=== PATIENT | female | born 1940 | race Caucasian/White ===

== ENCOUNTER 2017-06-17 17:05 | Inpatient (IN) | payer OTHER, MEDICARE ==
[2017-06-17] MEDS ORDERED: ALBUTEROL SO4 2.5/IPRATROPIUM 0.5 INH SOL 3 ML VIAL.NEB. NEB ONE ×3 (17:15→18:35)
[2017-06-17] MEDS ORDERED: IPRATROPIUM BR 0.02% 0.5 MG/2.5 ML VIAL.NEB. NEB ONE (17:15)
--- NOTE | 2017-06-17 17:17 | PDOC ---
History of Present Illness - General Chief Complaint: Shortness of Breath Stated Complaint: Shortness of Breath History Source: Patient Exam Limitations: No Limitations - History of Present Illness Initial Comments: 06/17/17 17:57 HPI: This 76-year-old female presents to the emergency room via EMS with complaints of shortness of breath. She states that she's been having a cold symptoms for quite some time. She does have some COPD and is a positive daily smoker. She does use an albuterol inhaler and she's been using it more frequently lately. She did not go to her primary physician as he has had no appointments but decided to come here because of her shortness of breath. Her oxygen saturation on on arrival was 88 on 2 L nasal cannula and she was bumped up to 4 L. She is able to complete sentences without having to stop for catching her breath however you can see that she is having some mild distress. Her color is pink. If she is having with a positive cough and states she does not have any production. She denies any fever, chills, runny nose, sore throat Chief Compliant: COPD exacerbation PMH: COPD, CAD, pnp-ehjwann-nqyjhzoxo diabetes FH: Pt has not recently traveled outside the country in the last 30 days. Pt has not been in contact with people who have traveled out of the country, in contact with people who have been ill with fever, n, v, d. SH: smoking use: Current every day illicit drug use: NONE alcohol use: NONE employment/educational status: sexual history: PSH: Right hip replacement Home med use noted on MAY Allergies: Quinolones and colchicine Immunizations: PCP: Dr. Dyson [employer] REPRESENTATIVE: LMP: G P : Past History - Past Medical History Allergies/Adverse Reactions: Allergies Allergy/AdvReac Type Severity Reaction Status Date / Time Quinolones Allergy Severe Verified 06/17/17 17:18 colchicine AdvReac Verified 06/17/17 17:18 Home Medications: Ambulatory Orders Albuterol Sulfate [Proair Hfa] 8.5 gm IH PRN 06/17/17 Allopurinol [Zyloprim -] 100 mg PO BID 06/17/17 Aspirin [ASA -] 81 mg PO DAILY 06/17/17 Cholecalciferol (Vitamin D3) [Vitamin D] 2,000 unit PO DAILY 06/17/17 Furosemide 20 mg PO Q2D 06/17/17 Levothyroxine [Synthroid -] 50 mcg PO DAILY 06/17/17 Lisinopril [Prinivil -] 40 mg PO DAILY 06/17/17 Metformin HCl 500 mg PO BID 06/17/17 Simvastatin 20 mg PO DAILY 06/17/17 Review of Systems - Review of Systems Able to Perform ROS?: Yes Comments:: 06/17/17 18:08 General statement: Shortness of breath Hematology: neg history of bleeding/blood thinners Skin: Neg for lesions, rash, bruising. HEENT: Neg symptoms and I sore throat Respiratory: + SOB without difficulty in breathing as it of cough Cardiac: Neg chest pain GI: Neg pain, n/v : Neg problems on voiding MS: Neg for joint pain/stiffness, no edema Neuro: Neg for LOC, weakness, Endocrine: Neg for excess thirst/hunger, cold/heat intolerance, excess sweating Allergies: + for allergies *Physical Exam - Physical Exam Comments: 06/17/17 18:09 General Appearance: This 76-year-old female with some mild respiratory distress V/S: hemodynamically stable, afebrile such and saturation 88 on room air and increased to 94 on 4 L Skin: WNL of pt's skin color, no signs of pallor, mottling, cyanosis Head:symmetrical Eyes: EOM's intact, PERRLA Ears: denies pain Nose: patent Throat: lips, teeth, gums, tongue, buccal mucos pink and moist Lungs: Chest symmetry equal. Cap refill >3 seconds. Lung sounds rhonchi and wheezing Cardiac: PMI at R 4MCL space, pos S1 and S2, regular rate. Abdomen: Soft, round, nontender : Not observed Muscularskeletal: no edema +PMS Neuro: AAOx3, cognitively intact, speech clear and appropriate. Medical Decision Making - Medical Decision Making 06/17/17 18:10 Condition initially seen and examined. She is showing some signs of mild COPD exacerbation. She's never been hospitalized for this before. She is a positive smoker and on albuterol however she stating that she's been having a cough with some shortness of breath. It is nonproductive. She's been using albuterol without any good results. She is now here for further evaluation. She is D satting at 90% on 2 L and was given some nasal cannula 4 L bring it up to 94%. Patient is getting in the emergency room some Solu-Medrol, Pepcid, magnesium, basic IV fluids Oxygen 4 L, DuoNeb's when necessary, Chest x-ray I am signing this patient out to my colleague: Sharri Espino DIRECTOR [employer] In brief, this patient is being seen in the ED for a chief complaint of: COPD exacerbation I have completed the initial assessment interview note and have ordered: Chest x -ray, DuoNeb, signed Medrol, Pepcid, magnesium, and IV fluids maintenance as well as 4 L nasal cannula Patient's PCP is Dr. Kiel bentley at [facility]. He admits to hospitalist. Plan for disposition is as follows: After reviewing chest x-ray and seeing how she does on treatment she will probably be admitted for COPD exacerbation. *DC/Admit/Observation/Transfer Diagnosis at time of Disposition: COPD (chronic obstructive pulmonary disease) - Referrals Referrals: Leonel Mccloud MD [Primary Care Provider] - - Patient Instructions - Post Discharge Activity
[2017-06-17] MEDS ORDERED: MAGNESIUM SULF 50% (8.12 MEQ/2 ML-1 GM VIAL) IVPB ONE (17:54)
[2017-06-17] MEDS ORDERED: methylPREDNISolone NA SUCC 125 MG/2 ML VIAL IVPB ONE (17:54)
[2017-06-17] MEDS ORDERED: FAMOTIDINE 20 MG/50 ML IVPB 20 MG/50 ML MG IVPB ONE ×2 (18:00→18:35)
[2017-06-17] MEDS ORDERED: methylPREDNISolone NA SUCC 125 MG/2 ML VIAL ONE (18:35)
[2017-06-17] MEDS ORDERED: MAGNESIUM SULF 50% (8.12 MEQ/2 ML-1 GM VIAL) ONE (18:35)
[2017-06-17 18:43] LABS: BASO % 0.8 % (0-2.0); EOS % 0.5 % (0-4.5); HEMATOCRIT 42.4 % (32.4-45.2); HEMOGLOBIN 14.2 GM/dL (10.7-15.3); LYMPH % 20.8 % (8-40); MCH 30.8 pg (25.7-33.7); MCHC 33.5 g/dl (32.0-36.0); MEAN CELL VOLUME 91.8 fl (80-96); MEAN PLT VOLUME 7.4 fl (7.5-11.1); NEUT % 70.9 % (42.8-82.8); PLATELET COUNT 270 K/MM3 (134-434); RBC 4.62 M/mm3 (3.60-5.2); RDW 15.5 % (11.6-15.6); WHITE BLOOD COUNT 8.9 K/mm3 (4.0-10.0)
[2017-06-17 18:53] LABS: INR 1.02 (0.82-1.09); PROTHROMBIN TIME (PATIENT) 11.5 SEC (9.98-11.88)
[2017-06-17 19:06] LABS: ALK PHOS 104 U/L (45-117); ANION GAP 8 (8-16); BILIRUBIN,TOTAL 0.1 mg/dL (0.2-1.0); BLOOD UREA NITROGEN 18 mg/dL (7-18); CALCIUM 9.3 mg/dL (8.5-10.1); CHLORIDE 95 mmol/L (98-107); CO2 33 mmol/L (21-32); CREATININE 0.8 mg/dL (0.55-1.02); GLUCOSE,RANDOM 111 mg/dL (74-106); SGOT/AST 18 U/L (15-37); SGPT/ALT 22 U/L (12-78); SODIUM 136 mmol/L (136-145)
[2017-06-17] MEDS: SODIUM CHLORIDE 1,000 ML IV SCH (19:37)
--- NOTE | 2017-06-17 19:45 | PDOC ---
*Physical Exam - Vital Signs Last Vital Signs Temp Pulse Resp BP Pulse Ox 97.5 F L 82 20 163/83 96 06/17/17 17:18 06/17/17 18:54 06/17/17 17:18 06/17/17 17:18 06/17/17 18:54 - Physical Exam General Appearance: Yes: Appropriately Dressed Respiratory/Chest: positive: Decreased Breath Sounds, Rales, Wheezing Cardiovascular: positive: Regular Rate Gastrointestinal/Abdominal: positive: Normal Bowel Sounds, Soft Extremity: positive: Normal Inspection, Normal Range of Motion Heart Score/ECG Review - ECG Intrepretation Rhythm: Regular Rhythm Comment:: 06/17/17 20:47 NSR: 83 bpm ED Treatment Course - LABORATORY CBC & Chemistry Diagram: 06/17/17 18:11 06/17/17 18:11 - ADDITIONAL ORDERS Additional order review: Laboratory Results 06/17/17 06/17/17 18:11 18:11 PT with INR 11.50 INR 1.02 Sodium 136 Potassium 4.0 Chloride 95 L Carbon Dioxide 33 H Anion Gap 8 BUN 18 Creatinine 0.8 Creat Clearance w eGFR > 60 Random Glucose 111 H Calcium 9.3 Total Bilirubin 0.1 L D AST 18 ALT 22 Alkaline Phosphatase 104 Total Protein 7.0 Albumin 3.0 L 06/17/17 18:11 RBC 4.62 MCV 91.8 MCHC 33.5 RDW 15.5 MPV 7.4 L Neutrophils % 70.9 Lymphocytes % 20.8 Monocytes % 7.0 Eosinophils % 0.5 Basophils % 0.8 - Medications Given in the ED: ED Medications Discontinued Medications Generic Name Dose Route Start Last Admin Trade Name Mika PRN Reason Stop Dose Admin Albuterol/Ipratropium 1 amp 06/17/17 17:54 06/17/17 19:37 Duoneb - NEB 06/17/17 17:55 1 amp ONCE ONE Administration Famotidine/Sodium Chloride 20 mg in 50 mls @ 100 mls/hr 06/17/17 18:00 19:37 Pepcid 20 Mg Premixed Ivpb - IVPB 06/17/17 18:29 100 mls/hr ONCE ONE Administration Magnesium Sulfate 2 gm 06/17/17 17:54 06/17/17 19:37 Magnesium Sulfate IVPB 06/17/17 17:55 2 gm ONCE ONE Administration Methylprednisolone Sodium Succinate 125 mg 06/17/17 17:54 06/17/17 19:37 Solu-Medrol - IVPB 06/17/17 17:55 125 mg ONCE ONE Administration Medical Decision Making - Medical Decision Making 06/17/17 20:49 Patient is currently requiring 2 L NC to maintain sats > 92%. slight improvement in aeration. 06/17/17 20:55 patient to be admitted for further management of care. 06/17/17 21:26 patient signed out to Dr. Moon *DC/Admit/Observation/Transfer Diagnosis at time of Disposition: COPD (chronic obstructive pulmonary disease) Qualifiers: COPD type: COPD with acute exacerbation Qualified Code(s): J44.1 - Chronic obstructive pulmonary disease with (acute) exacerbation - Discharge Dispostion Admit: Yes - Referrals Referrals: Leonel Mccloud MD [Primary Care Provider] - - Patient Instructions - Post Discharge Activity
[2017-06-17 20:15] LABS: N-TERMINAL BNP 648.58 pg/ml (5-450)
[2017-06-17] MEDS ORDERED: FUROSEMIDE 40 MG/4 ML INJECTABLE VIAL IVPUSH ONE (21:03)
--- NOTE | 2017-06-17 21:09 | PN ---
Teaching Attending Note Name of Resident: Juan Fernández ATTENDING PHYSICIAN STATEMENT I saw and evaluated the patient. Chart, data, imaging reviewed. I reviewed the resident's note and discussed the case with the resident. I agree with the resident's findings and plan as documented. SUBJECTIVE: 76 year old female with a history of extensive smoking, COPD, CAD, DM, hypothyroid, and gout c/o shortness of breath for the past 5 days. She had a cold prior to her shortness of breath. There is a chronic cough at baseline w/ minimal sputum production. SHe is an active smoker. Decreased exercise capacity , can only walk short distances. She has never had PFTs done nor does she take maintenance inhalers for COPD. Patient hypoxemic and with wheezing in ER which improved after steroids and bronchodilators. OBJECTIVE: Last Vital Signs Temp Pulse Resp BP Pulse Ox 97.5 F L 82 22 150/82 91 L 06/17/17 17:18 06/17/17 22:46 06/17/17 21:35 06/17/17 21:35 06/17/17 22:46 general - nad, aaox3 , obese, speaking in full sentences. heent - at, nc, moist oral mucosa neck -supple, no JVD noted cv -s1+S2+ rrr chest- scant wheezing, soft bibasilar crackles abdomen- soft, BS+, nt ext- warm, mild pedal edema, no cyanosis Abnormal Lab Results 06/17/17 06/17/17 06/17/17 18:11 18:11 19:45 MPV 7.4 L Chloride 95 L Carbon Dioxide 33 H Random Glucose 111 H Total Bilirubin 0.1 L D B-Natriuretic Peptide 648.58 H Albumin 3.0 L CXR - reviewed by me, no obvious consolidations or infiltrates seen, sharp costophrenic angles EKG -sinus rhythm, P pulmonale ASSESSMENT AND PLAN: #76yo woman active smoker with COPD exacerbation and hypoxemic resp failure with improvement in o2 after nasal cannula supplemental oxygen. Should r/o CHF. Very low suspiscion of PE as there is no tachycardia and patient is ambulatory. May be CHF component as there is mildly elevated BNP and prior diastolic dysfunction on TTE. -duonebs q4hrs -prednisone 40mg PO daily -azithromycin 500mg PO daily for 5 days -start spiriva while inpatient -pulmonary evaluation for PFTs -smoking cessation -supplemental oxygen via nasal cannula -TTE to r/o CHF -furosemide 20mg IV daily -continue home meds for chronic medical problems #DVT ppx with heparin sc
[2017-06-17] MEDS ORDERED: ALBUTEROL SO4 0.083% IH SOL 2.5 MG/3 ML VIAL.NEB. NEB PRN (21:34)
[2017-06-17] MEDS ORDERED: IPRATROPIUM BR 0.02% 0.5 MG/2.5 ML VIAL.NEB. NEB PRN (21:34)
[2017-06-17] MEDS ORDERED: FUROSEMIDE 40 MG/4 ML INJECTABLE VIAL ONE (21:56)
[2017-06-17] MEDS ORDERED: INSULIN SLIDING SCALE (NOVOLOG) 1 VIAL SQ SCH (22:00)
--- NOTE | 2017-06-17 22:21 | HP ---
CHIEF COMPLAINT: shortness of breath PCP: Dr. Mccloud HISTORY OF PRESENT ILLNESS: 76 year old female with a history of COPD, CAD, DM, hypothyroid, and gout presents to the hospital for shortness of breath that began on Wednesday. She states that she has been experiencing cold symptoms (cough, head congestion) for several weeks, and only started feeling the shortness of breath on Wednesday. She reports that it is exacerbated by exertion, stating that she is unable to walk very far without becoming short of breath. Patient reports a non- productive cough since the cold symptoms began. She states that she has an albuterol inhaler at home, and when she used it, she did not feel any relief and so she came to the hospital. Patient states that she has never "officially" been diagnosed with COPD or had any pulmonary function testing. She says that her diagnosis was given to her after she told a physician she was a lifelong smoker. She states was never diagnosed with CHF, but she states that both of her legs have been swollen for around 1 year (no changer fixer the past week), and she sleeps in an armchair and not a bed because of it helps her incontinence , not because it helps her breathing. Denies chest pain, fevers, chills, nausea , vomiting, diarrhea, abdominal pain. ER course was notable for: (1) O2 sat 88% on RA (2) BP 163/83 (3) Recent Travel: PAST MEDICAL HISTORY: COPD, CAD, DM, hypothyroid, and gout Social History: Smoking: every day smoker, 1 pack a day since 17 years old Alcohol: none Drugs: none Allergies Quinolones Allergy (Severe, Verified 06/17/17 17:18) colchicine Adverse Reaction (Verified 06/17/17 17:18) HOME MEDICATIONS: Home Medications Medication Instructions Recorded Albuterol Sulfate [Proair Hfa] 8.5 gm IH PRN 06/17/17 Allopurinol [Zyloprim -] 100 mg PO BID 06/17/17 Aspirin [ASA -] 81 mg PO DAILY 06/17/17 Cholecalciferol (Vitamin D3) 2,000 unit PO DAILY 06/17/17 [Vitamin D] Furosemide 20 mg PO Q2D 06/17/17 Levothyroxine [Synthroid -] 50 mcg PO DAILY 06/17/17 Lisinopril [Prinivil -] 40 mg PO DAILY 06/17/17 Metformin HCl 500 mg PO BID 06/17/17 Simvastatin 20 mg PO DAILY 06/17/17 REVIEW OF SYSTEMS CONSTITUTIONAL: Absent: fever, chills, diaphoresis, generalized weakness, malaise, loss of appetite, weight change HEENT: Absent: rhinorrhea, nasal congestion, throat pain, throat swelling, difficulty swallowing, mouth swelling, ear pain, eye pain, visual changes CARDIOVASCULAR: Absent: chest pain, syncope, palpitations, irregular heart rate, lightheadedness , peripheral edema RESPIRATORY: cough, shortness of breath, dyspnea with exertion, wheezing Absent: orthopnea, stridor, hemoptysis GASTROINTESTINAL: Absent: abdominal pain, abdominal distension, nausea, vomiting, diarrhea, constipation, melena, hematochezia GENITOURINARY: Absent: dysuria, frequency, urgency, hesitancy, hematuria, flank pain, genital pain MUSCULOSKELETAL: Absent: myalgia, arthralgia, joint swelling, back pain, neck pain SKIN: Absent: rash, itching, pallor HEMATOLOGIC/IMMUNOLOGIC: Absent: easy bleeding, easy bruising, lymphadenopathy, frequent infections ENDOCRINE: Absent: unexplained weight gain, unexplained weight loss, heat intolerance, cold intolerance NEUROLOGIC: Absent: headache, focal weakness or paresthesias, dizziness, unsteady gait, seizure, mental status changes, bladder or bowel incontinence PSYCHIATRIC: Absent: anxiety, depression, suicidal or homicidal ideation, hallucinations. PHYSICAL EXAMINATION Vital Signs - 24 hr 06/17/17 06/17/17 06/17/17 17:18 17:55 18:54 Temperature 97.5 F L Pulse Rate 84 85 82 Respiratory 20 Rate Blood Pressure 163/83 O2 Sat by Pulse 94 L 94 L 96 Oximetry (%) GENERAL: A&Ox3, no acute distress EYES: PERRLA, EOMI ENT: Moist mucus membranes NECK: No JVD LUNGS: diffuse expiratory wheezes, mild bibasilar crackles at lung bases HEART: RRR, no murmurs ABDOMEN: Obese, nontender, bowel sounds are present on auscultation MUSCULOSKELETAL: No CVA Tenderness EXTREMITIES: 2+ pulses, 1+ pitting edema bilaterally NEUROLOGICAL: Cranial nerves II-XII intact. Laboratory Results - last 24 hr 06/17/17 06/17/17 06/17/17 18:11 18:11 18:11 WBC 8.9 RBC 4.62 Hgb 14.2 Hct 42.4 MCV 91.8 MCH 30.8 MCHC 33.5 RDW 15.5 Plt Count 270 MPV 7.4 L Neutrophils % 70.9 Lymphocytes % 20.8 Monocytes % 7.0 Eosinophils % 0.5 Basophils % 0.8 PT with INR 11.50 INR 1.02 Sodium 136 Potassium 4.0 Chloride 95 L Carbon Dioxide 33 H Anion Gap 8 BUN 18 Creatinine 0.8 Creat Clearance w eGFR > 60 Random Glucose 111 H Calcium 9.3 Total Bilirubin 0.1 L D AST 18 ALT 22 Alkaline Phosphatase 104 Creatine Kinase Troponin I B-Natriuretic Peptide Total Protein 7.0 Albumin 3.0 L 06/17/17 19:45 WBC RBC Hgb Hct MCV MCH MCHC RDW Plt Count MPV Neutrophils % Lymphocytes % Monocytes % Eosinophils % Basophils % PT with INR INR Sodium Potassium Chloride Carbon Dioxide Anion Gap BUN Creatinine Creat Clearance w eGFR Random Glucose Calcium Total Bilirubin AST ALT Alkaline Phosphatase Creatine Kinase 57 Troponin I 0.02 B-Natriuretic Peptide 648.58 H Total Protein Albumin ASSESSMENT/PLAN: 76 year old female with a history of COPD, CAD, DM, hypothyroid, and gout presents with shortness of breath suggestive of COPD exacerbation #Acute hypoxic respiratory failure: likely 2/2 mild to moderate COPD exacerbation, possible mild CHF exacerbation, low clinical suspicion for PE (no tachycardia, ekg changes, alternative diagnosis more likely) -EKG NSR -albuterol inhaler Q4 -ipratropium inhaler Q4 -solumedrol given in ED -continue with prednisone 40 QD -zithromax 500 -spiriva -continue with home dose lasix 20mg Q2D -last echo was in 2014 - showed grade I diastolic dysfunction with EF 69% -repeat echocardiogram -O2 sats -daily weights, accurate I's/O's #Diabetes Mellitus -BGMs ACHS -ISS #Coronary Artery Disease -continue aspirin 81mg QD #Hypothyroidism: stable -continue levothyroxine 50mcg daily #Hypertension: patient is hypertensive at 163/83 -continue lisinopril 40 daily #Gout: stable -continue allopurinol #FEN -No standing fluids -Electrolytes within normal limits -diabetic diet #Prophylaxis -heparin 5000 subQ TID #Disposition -admit to med surg Visit type - Emergency Visit Emergency Visit: Yes ED Registration Date: 06/17/17 Care time: The patient presented to the Emergency Department on the above date and was hospitalized for further evaluation of their emergent condition. - New Patient This patient is new to me today: Yes Date on this admission: 06/17/17 - Critical Care Critical Care patient: No Hospitalist Screening - Colonoscopy Questionnaire Colonoscopy Questionnaire: Colonoscopy Questionnaire - Patient: 50 - 75 years old and never had a screening colonoscopy: Unknown History of colon or rectal polyps, or CA: Unknown History of IBD, Crohn's disease or UC: Unknown History of abdominal radiation therapy as a child: Unknown - Relative: 1 with colon or rectal CA, or polyps at age 60 or younger: Unknown Colon or rectal CA diagnosed at age 45 or younger: Unknown Multiple relatives with colon or rectal CA: Unknown - Outcome: Screening Result: Negative Screen
[2017-06-17] MEDS: ALLOPURINOL 100 MG TABLET (FP) PO SCH (22:42)
[2017-06-17] MEDS: ATORVASTATIN CA 20 MG TABLET (FP) PO ONE ×2 (22:43→23:13)
[2017-06-17] MEDS: HEPARIN NA (PORCINE) 5,000 UNITS/ML 1ML VIAL SQ SCH (23:13)
[2017-06-17] MEDS ORDERED: HEPARIN NA (PORCINE) 5,000 UNITS/ML 1ML VIAL ONE (23:14)
[2017-06-18 05:16] VITALS: BMI 37.5
[2017-06-18] MEDS: INSULIN SLIDING SCALE (NOVOLOG) 1 VIAL SQ SCH ×4 (06:59→21:41)
[2017-06-18] MEDS: HEPARIN NA (PORCINE) 5,000 UNITS/ML 1ML VIAL SQ SCH ×3 (07:03→21:40)
[2017-06-18] MEDS: LEVOTHYROXINE NA 50 MCG TABLET (FP) PO SCH (07:06)
[2017-06-18 08:38] LABS: HEMATOCRIT 40.1 % (32.4-45.2); HEMOGLOBIN 13.3 GM/dL (10.7-15.3); MCH 30.3 pg (25.7-33.7); MCHC 33.2 g/dl (32.0-36.0); MEAN CELL VOLUME 91.5 fl (80-96); MEAN PLT VOLUME 7.6 fl (7.5-11.1); PLATELET COUNT 246 K/MM3 (134-434); RBC 4.38 M/mm3 (3.60-5.2); WHITE BLOOD COUNT 6.4 K/mm3 (4.0-10.0)
[2017-06-18 08:54] LABS: ANION GAP 11 (8-16); BLOOD UREA NITROGEN 22 mg/dL (7-18); CHLORIDE 95 mmol/L (98-107); CO2 31 mmol/L (21-32); GLUCOSE,RANDOM 204 mg/dL (74-106); MAGNESIUM 1.8 mg/dL (1.8-2.4); POTASSIUM 4.2 mmol/L (3.5-5.1); SODIUM 137 mmol/L (136-145)
[2017-06-18 08:56] LABS: CREATININE 0.9 mg/dL (0.55-1.02); PHOSPHOROUS 3.4 mg/dL (2.5-4.9)
[2017-06-18] MEDS ORDERED: predniSONE 20 MG TABLET (UD) PO SCH (10:00)
--- NOTE | 2017-06-18 10:09 | EKG ---
Test Reason : Blood Pressure : / mmHG Vent. Rate : 083 BPM Atrial Rate : 083 BPM P-R Int : 144 ms QRS Dur : 070 ms QT Int : 362 ms P-R-T Axes : 083 029 061 degrees QTc Int : 425 ms NORMAL SINUS RHYTHM LOW VOLTAGE QRS CANNOT RULE OUT ANTEROSEPTAL INFARCT (CITED ON OR BEFORE 09-APR-2008) ABNORMAL ECG WHEN COMPARED WITH ECG OF 09-APR-2008 12:49, NO SIGNIFICANT CHANGE WAS FOUND Confirmed by AKIL NELSON MD ([id number]) on 06/18/2017 10:09:04 AM Referred By: Confirmed By:AKIL NELSON MD
[2017-06-18] MEDS: methylPREDNISolone NA SUCC 40 MG/1 ML VIAL IVPUSH SCH ×2 (10:48→21:40)
[2017-06-18] MEDS: LISINOPRIL 20 MG TABLET (FP) PO SCH (10:48)
[2017-06-18] MEDS: ALLOPURINOL 100 MG TABLET (FP) PO SCH ×2 (10:48→21:40)
[2017-06-18] MEDS: AZITHROMYCIN 250 MG TABLET PO SCH (10:48)
[2017-06-18] MEDS: ASPIRIN 81 MG CHEWABLE TABLETS PO SCH (10:48)
[2017-06-18] MEDS: CHOLECALCIFEROL (VITAMIN D3) 1,000 UNIT TABLET (FP) PO SCH (10:48)
[2017-06-18] MEDS: ALBUTEROL SO4 2.5/IPRATROPIUM 0.5 INH SOL 3 ML VIAL.NEB. NEB SCH ×3 (12:14→21:06)
--- NOTE | 2017-06-18 14:13 | PN ---
Physical Exam: SUBJECTIVE: Patient seen and examined No acute events overnight. Patient feels better this morning. Continues to be dyspnic on exertion OBJECTIVE: Vital Signs Period Temp Pulse Resp BP Sys/Hua Pulse Ox Last 24 Hr 97.5 F-97.7 F 82-85 20-22 97-163/56-83 91-96 GENERAL: A&Ox3, no acute distress EYES: PERRLA, EOMI ENT: Moist mucus membranes NECK: No JVD LUNGS: diminshed breath sounds throughout, no crackles/wheezes heard HEART: RRR, no murmurs ABDOMEN: Obese, nontender, bowel sounds are present on auscultation MUSCULOSKELETAL: No CVA Tenderness EXTREMITIES: 2+ pulses, 2+ pitting edema bilaterally NEUROLOGICAL: Cranial nerves II-XII intact. Laboratory Results - last 24 hr 06/17/17 06/17/17 06/17/17 18:11 18:11 18:11 WBC 8.9 RBC 4.62 Hgb 14.2 Hct 42.4 MCV 91.8 MCH 30.8 MCHC 33.5 RDW 15.5 Plt Count 270 MPV 7.4 L Neutrophils % 70.9 Lymphocytes % 20.8 Monocytes % 7.0 Eosinophils % 0.5 Basophils % 0.8 PT with INR 11.50 INR 1.02 Sodium 136 Potassium 4.0 Chloride 95 L Carbon Dioxide 33 H Anion Gap 8 BUN 18 Creatinine 0.8 Creat Clearance w eGFR > 60 POC Glucometer Random Glucose 111 H Calcium 9.3 Phosphorus Magnesium Total Bilirubin 0.1 L D AST 18 ALT 22 Alkaline Phosphatase 104 Creatine Kinase Troponin I B-Natriuretic Peptide Total Protein 7.0 Albumin 3.0 L 06/17/17 06/18/17 06/18/17 19:45 06:54 07:00 WBC 6.4 RBC 4.38 Hgb 13.3 Hct 40.1 MCV 91.5 MCH 30.3 MCHC 33.2 RDW 16.0 H Plt Count 246 MPV 7.6 Neutrophils % Lymphocytes % Monocytes % Eosinophils % Basophils % PT with INR INR Sodium Potassium Chloride Carbon Dioxide Anion Gap BUN Creatinine Creat Clearance w eGFR POC Glucometer 225 Random Glucose Calcium Phosphorus Magnesium Total Bilirubin AST ALT Alkaline Phosphatase Creatine Kinase 57 Troponin I 0.02 B-Natriuretic Peptide 648.58 H Total Protein Albumin 06/18/17 06/18/17 07:00 11:37 WBC RBC Hgb Hct MCV MCH MCHC RDW Plt Count MPV Neutrophils % Lymphocytes % Monocytes % Eosinophils % Basophils % PT with INR INR Sodium 137 Potassium 4.2 Chloride 95 L Carbon Dioxide 31 Anion Gap 11 BUN 22 H Creatinine 0.9 Creat Clearance w eGFR POC Glucometer 159 Random Glucose 204 H Calcium 9.0 Phosphorus 3.4 Magnesium 1.8 Total Bilirubin AST ALT Alkaline Phosphatase Creatine Kinase Troponin I B-Natriuretic Peptide Total Protein Albumin Active Medications Generic Name Dose Route Start Last Admin Trade Name Freq PRN Reason Stop Dose Admin Albuterol Sulfate 1 amp 06/17/17 21:34 Ventolin 0.083% Nebulizer Soln - NEB Q4H PRN SHORT OF BREATH/WHEEZING Albuterol/Ipratropium 1 amp 06/18/17 12:00 06/18/17 12:14 Duoneb - NEB 1 amp RQID REBECCA Administration Allopurinol 100 mg 06/17/17 22:00 06/18/17 10:48 Zyloprim - PO 100 mg BID REBECCA Administration Aspirin 81 mg 06/18/17 10:00 06/18/17 10:48 Asa - PO 81 mg DAILY REBECCA Administration Azithromycin 500 mg 06/18/17 10:00 06/18/17 10:48 Zithromax - PO 500 mg DAILY REBECCA Administration Cholecalciferol 2,000 unit 06/18/17 10:00 06/18/17 10:48 Vitamin D3 - PO 2,000 unit DAILY REBECCA Administration Furosemide 20 mg 06/19/17 10:00 Lasix - PO Q2D REBECCA Guaifenesin 10 ml 06/18/17 13:34 Robitussin - PO Q4H PRN COUGH Heparin Sodium (Porcine) 5,000 unit 06/17/17 22:15 06/18/17 07:03 Heparin - SQ 5,000 unit TID REBECCA Administration Sodium Chloride 1,000 mls @ 100 mls/hr 06/17/17 18:00 06/17/17 19:37 Normal Saline - IV 100 mls/hr ASDIR REBECCA Administration Insulin Aspart 1 vial 06/17/17 22:13 06/18/17 11:38 Novolog Vial Sliding Scale - SQ 2 unit ACHS REBECCA Administration Protocol Levothyroxine Sodium 50 mcg 06/18/17 07:00 06/18/17 07:06 Synthroid - PO 50 mcg DAILY@0700 REBECCA Administration Lisinopril 40 mg 06/18/17 10:00 06/18/17 10:48 Prinivil PO 40 mg DAILY REBECCA Administration Methylprednisolone Sodium Succinate 40 mg 06/18/17 10:00 06/18/17 10:48 Solu-Medrol - IVPUSH 40 mg BID REBECCA Administration ASSESSMENT/PLAN: 76 year old female with a history of COPD, CAD, DM, hypothyroid, and gout presents with shortness of breath suggestive of COPD exacerbation #Acute hypoxic respiratory failure: likely 2/2 mild to moderate COPD exacerbation -Duonebs qidr rebecca -albuterol inhaler Q4 prn -Solumederol 40 bid -zithromax 500 -spiriva -continue with home dose lasix 20mg Q2D -repeat echocardiogram pending -O2 sats -daily weights, accurate I's/O's #Diabetes Mellitus -BGMs ACHS -ISS #Coronary Artery Disease -continue aspirin 81mg QD #Hypothyroidism: stable -continue levothyroxine 50mcg daily #Hypertension: patient is hypertensive at 163/83 -continue lisinopril 40 daily #Gout: stable -continue allopurinol #FEN -NS @ 100 cc/hr -Electrolytes within normal limits -diabetic diet #Prophylaxis -heparin 5000 subQ TID Visit type - Emergency Visit Emergency Visit: Yes ED Registration Date: 06/17/17 Care time: The patient presented to the Emergency Department on the above date and was hospitalized for further evaluation of their emergent condition. - New Patient This patient is new to me today: Yes Date on this admission: 06/18/17 - Critical Care Critical Care patient: No
--- NOTE | 2017-06-18 17:08 | PN ---
Teaching Attending Note Name of Resident: Domenico Magaña ATTENDING PHYSICIAN STATEMENT I saw and evaluated the patient. I reviewed the resident's note and discussed the case with the resident. I agree with the resident's findings and plan as documented. SUBJECTIVE: Patient feels SOB. OBJECTIVE: Vital Signs Period Temp Pulse Resp BP Sys/Hua Pulse Ox Last 24 Hr 97.5 F-97.9 F 82-94 20-22 97-163/56-83 91-96 HEART: S1S2, RRR LUNGS: Poor air entry ABDOMEN: Obese, soft, non-tender, non-distended, normal BS EXTREMITIES: 1+ edema Laboratory Results - last 24 hr 06/17/17 06/17/17 06/17/17 18:11 18:11 18:11 WBC 8.9 RBC 4.62 Hgb 14.2 Hct 42.4 MCV 91.8 MCH 30.8 MCHC 33.5 RDW 15.5 Plt Count 270 MPV 7.4 L Neutrophils % 70.9 Lymphocytes % 20.8 Monocytes % 7.0 Eosinophils % 0.5 Basophils % 0.8 PT with INR 11.50 INR 1.02 Sodium 136 Potassium 4.0 Chloride 95 L Carbon Dioxide 33 H Anion Gap 8 BUN 18 Creatinine 0.8 Creat Clearance w eGFR > 60 POC Glucometer Random Glucose 111 H Calcium 9.3 Phosphorus Magnesium Total Bilirubin 0.1 L D AST 18 ALT 22 Alkaline Phosphatase 104 Creatine Kinase Troponin I B-Natriuretic Peptide Total Protein 7.0 Albumin 3.0 L 06/17/17 06/18/17 06/18/17 19:45 06:54 07:00 WBC 6.4 RBC 4.38 Hgb 13.3 Hct 40.1 MCV 91.5 MCH 30.3 MCHC 33.2 RDW 16.0 H Plt Count 246 MPV 7.6 Neutrophils % Lymphocytes % Monocytes % Eosinophils % Basophils % PT with INR INR Sodium Potassium Chloride Carbon Dioxide Anion Gap BUN Creatinine Creat Clearance w eGFR POC Glucometer 225 Random Glucose Calcium Phosphorus Magnesium Total Bilirubin AST ALT Alkaline Phosphatase Creatine Kinase 57 Troponin I 0.02 B-Natriuretic Peptide 648.58 H Total Protein Albumin 06/18/17 06/18/17 07:00 11:37 WBC RBC Hgb Hct MCV MCH MCHC RDW Plt Count MPV Neutrophils % Lymphocytes % Monocytes % Eosinophils % Basophils % PT with INR INR Sodium 137 Potassium 4.2 Chloride 95 L Carbon Dioxide 31 Anion Gap 11 BUN 22 H Creatinine 0.9 Creat Clearance w eGFR POC Glucometer 159 Random Glucose 204 H Calcium 9.0 Phosphorus 3.4 Magnesium 1.8 Total Bilirubin AST ALT Alkaline Phosphatase Creatine Kinase Troponin I B-Natriuretic Peptide Total Protein Albumin Current Medications Generic Name Dose Route Start Last Admin Trade Name Freq PRN Reason Stop Dose Admin Albuterol Sulfate 1 amp 06/17/17 21:34 Ventolin 0.083% Nebulizer Soln - NEB Q4H PRN SHORT OF BREATH/WHEEZING Albuterol/Ipratropium 1 amp 06/18/17 12:00 06/18/17 16:06 Duoneb - NEB 1 amp RQID [facility] Administration Allopurinol 100 mg 06/17/17 22:00 06/18/17 10:48 Zyloprim - PO 100 mg BID [facility] Administration Aspirin 81 mg 06/18/17 10:00 06/18/17 10:48 Asa - PO 81 mg DAILY [facility] Administration Azithromycin 500 mg 06/18/17 10:00 06/18/17 10:48 Zithromax - PO 500 mg DAILY [facility] Administration Cholecalciferol 2,000 unit 06/18/17 10:00 06/18/17 10:48 Vitamin D3 - PO 2,000 unit DAILY [facility] Administration Furosemide 20 mg 06/19/17 10:00 Lasix - PO Q2D [facility] Guaifenesin 10 ml 06/18/17 13:34 Robitussin - PO Q4H PRN COUGH Heparin Sodium (Porcine) 5,000 unit 06/17/17 22:15 06/18/17 14:47 Heparin - SQ 5,000 unit TID [facility] Administration Sodium Chloride 1,000 mls @ 100 mls/hr 06/17/17 18:00 06/17/17 19:37 Normal Saline - IV 100 mls/hr ASDIR [facility] Administration Insulin Aspart 1 vial 06/17/17 22:13 06/18/17 16:49 Novolog Vial Sliding Scale - SQ 4 unit ACHS [facility] Administration Protocol Levothyroxine Sodium 50 mcg 06/18/17 07:00 06/18/17 07:06 Synthroid - PO 50 mcg DAILY@0700 [facility] Administration Lisinopril 40 mg 06/18/17 10:00 06/18/17 10:48 Prinivil PO 40 mg DAILY [facility] Administration Methylprednisolone Sodium Succinate 40 mg 06/18/17 10:00 06/18/17 10:48 Solu-Medrol - IVPUSH 40 mg BID [facility] Administration ASSESSMENT AND PLAN: This is a 76 year old woman with a history of COPD, CAD, type 2 DM, hypothyroidism, obesity, gout who presented to the ED with shortness of breath. exacerbation 1. Acute hypoxic respiratory failure secondary to acute exacerbation of COPD - Continue SoluMedrol, DuoNeb, albuterol as needed, Zithromax, Robitussin as needed - Echo shows normal LVEF, E/A reversal - Clinically does not appear to be acute heart failure 2. Type 2 DM - Metformin held - Continue Novolog sliding scale 3. CAD - Continue aspirin, Zocor 4. Hypothyroidism - Continue Synthroid 5. Hypertension - Continue lisinopril, Lasix 6. History of gout - Continue Allopurinol 7. Obesity with BMI 37.9
[2017-06-18] MEDS: guaiFENesin 200 MG/10 ML 10 ML UNIT-DOSE CUPS PO PRN ×2 (18:48→23:35)
[2017-06-19] MEDS: HEPARIN NA (PORCINE) 5,000 UNITS/ML 1ML VIAL SQ SCH ×3 (06:02→22:04)
[2017-06-19] MEDS: INSULIN SLIDING SCALE (NOVOLOG) 1 VIAL SQ SCH ×4 (06:03→22:04)
[2017-06-19] MEDS: LEVOTHYROXINE NA 50 MCG TABLET (FP) PO SCH (06:03)
[2017-06-19] MEDS ORDERED: PT OWN MED DRAWER 7, Y5N ONE ×2 (06:47→21:14)
[2017-06-19] MEDS ORDERED: INSULIN (NOVOLOG) ASPART 100 UNITS/ML 10ML VIAL ONE (06:47)
[2017-06-19] MEDS: ALBUTEROL SO4 2.5/IPRATROPIUM 0.5 INH SOL 3 ML VIAL.NEB. NEB SCH ×4 (07:45→20:13)
--- NOTE | 2017-06-19 07:50 | PN ---
Physical Exam: SUBJECTIVE: Patient seen and examined No acute events overnight. Patient feels better this morning. OBJECTIVE: Vital Signs Period Temp Pulse Resp BP Sys/Hua Pulse Ox Last 24 Hr 96.1 F-98.3 F 89-96 20-24 153-164/77-83 96-96 GENERAL: A&Ox3, no acute distress EYES: PERRLA, EOMI ENT: Moist mucus membranes NECK: No JVD LUNGS: Improved air entry, no crackles/wheezes heard HEART: RRR, no murmurs ABDOMEN: Obese, nontender, bowel sounds are present on auscultation MUSCULOSKELETAL: No CVA Tenderness EXTREMITIES: 2+ pulses, 2+ pitting edema bilaterally NEUROLOGICAL: Cranial nerves II-XII intact. Laboratory Results - last 24 hr 06/18/17 06/18/17 06/18/17 07:00 07:00 11:37 WBC 6.4 RBC 4.38 Hgb 13.3 Hct 40.1 MCV 91.5 MCH 30.3 MCHC 33.2 RDW 16.0 H Plt Count 246 MPV 7.6 Sodium 137 Potassium 4.2 Chloride 95 L Carbon Dioxide 31 Anion Gap 11 BUN 22 H Creatinine 0.9 POC Glucometer 159 Random Glucose 204 H Calcium 9.0 Phosphorus 3.4 Magnesium 1.8 06/18/17 06/18/17 06/19/17 16:47 21:37 05:58 WBC RBC Hgb Hct MCV MCH MCHC RDW Plt Count MPV Sodium Potassium Chloride Carbon Dioxide Anion Gap BUN Creatinine POC Glucometer 231 179 188 Random Glucose Calcium Phosphorus Magnesium Active Medications Generic Name Dose Route Start Last Admin Trade Name Freq PRN Reason Stop Dose Admin Albuterol Sulfate 1 amp 06/17/17 21:34 Ventolin 0.083% Nebulizer Soln - NEB Q4H PRN SHORT OF BREATH/WHEEZING Albuterol/Ipratropium 1 amp 06/18/17 12:00 06/18/17 21:06 Duoneb - NEB 1 amp RQID [facility] Administration Allopurinol 100 mg 06/17/17 22:00 06/18/17 21:40 Zyloprim - PO 100 mg BID [facility] Administration Aspirin 81 mg 06/18/17 10:00 06/18/17 10:48 Asa - PO 81 mg DAILY [facility] Administration Azithromycin 500 mg 06/18/17 10:00 06/18/17 10:48 Zithromax - PO 500 mg DAILY [facility] Administration Cholecalciferol 2,000 unit 06/18/17 10:00 06/18/17 10:48 Vitamin D3 - PO 2,000 unit DAILY [facility] Administration Furosemide 20 mg 06/19/17 10:00 Lasix - PO Q2D [facility] Guaifenesin 10 ml 06/18/17 13:34 06/18/17 23:35 Robitussin - PO 10 ml Q4H PRN Administration COUGH Heparin Sodium (Porcine) 5,000 unit 06/17/17 22:15 06/19/17 06:02 Heparin - SQ 5,000 unit TID [facility] Administration Insulin Aspart 1 vial 06/17/17 22:13 06/19/17 06:03 Novolog Vial Sliding Scale - SQ 2 unit ACHS [facility] Administration Protocol Levothyroxine Sodium 50 mcg 06/18/17 07:00 06/19/17 06:03 Synthroid - PO 50 mcg DAILY@0700 [facility] Administration Lisinopril 40 mg 06/18/17 10:00 06/18/17 10:48 Prinivil PO 40 mg DAILY [facility] Administration Methylprednisolone Sodium Succinate 40 mg 06/18/17 10:00 06/18/17 21:40 Solu-Medrol - IVPUSH 40 mg BID [facility] Administration ASSESSMENT/PLAN: Visit type - Emergency Visit Emergency Visit: Yes ED Registration Date: 06/17/17 Care time: The patient presented to the Emergency Department on the above date and was hospitalized for further evaluation of their emergent condition. - New Patient This patient is new to me today: No - Critical Care Critical Care patient: No
[2017-06-19 09:02] LABS: ANION GAP 5 (8-16); BLOOD UREA NITROGEN 37 mg/dL (7-18); CALCIUM 9.4 mg/dL (8.5-10.1); CHLORIDE 96 mmol/L (98-107); CO2 34 mmol/L (21-32); CREATININE 1.1 mg/dL (0.55-1.02); GLUCOSE,RANDOM 173 mg/dL (74-106); POTASSIUM 5.6 mmol/L (3.5-5.1); SODIUM 135 mmol/L (136-145)
[2017-06-19] MEDS: methylPREDNISolone NA SUCC 40 MG/1 ML VIAL IVPUSH SCH ×2 (09:10→22:04)
[2017-06-19] MEDS: ASPIRIN 81 MG CHEWABLE TABLETS PO SCH (09:10)
[2017-06-19] MEDS: LISINOPRIL 20 MG TABLET (FP) PO SCH (09:10)
[2017-06-19] MEDS: FUROSEMIDE 20 MG TABLET (FP) PO SCH (09:10)
[2017-06-19] MEDS: ALLOPURINOL 100 MG TABLET (FP) PO SCH ×2 (09:10→22:04)
[2017-06-19] MEDS: AZITHROMYCIN 250 MG TABLET PO SCH (09:10)
[2017-06-19] MEDS: CHOLECALCIFEROL (VITAMIN D3) 1,000 UNIT TABLET (FP) PO SCH (09:10)
[2017-06-19] MEDS ORDERED: SODIUM POLYSTYRENE SULFONATE 15 GM/60 ML BOTTLE PO ONE (10:12)
[2017-06-19] MEDS: SODIUM CHLORIDE 1,000 ML IV SCH (10:33)
--- NOTE | 2017-06-19 11:35 | EKG ---
Test Reason : Blood Pressure : / mmHG Vent. Rate : 080 BPM Atrial Rate : 080 BPM P-R Int : 152 ms QRS Dur : 078 ms QT Int : 356 ms P-R-T Axes : 068 004 040 degrees QTc Int : 410 ms NORMAL SINUS RHYTHM POSSIBLE LEFT ATRIAL ENLARGEMENT ANTEROSEPTAL INFARCT (CITED ON OR BEFORE 09-APR-2008) ABNORMAL ECG WHEN COMPARED WITH ECG OF 17-JUN-2017 19:13, NO SIGNIFICANT CHANGE WAS FOUND Confirmed by AKIL NELSON MD ([id number]) on 06/19/2017 11:35:10 AM Referred By: Jonas KEATING Confirmed By:AKIL NELSON MD
--- NOTE | 2017-06-19 13:55 | PN ---
Teaching Attending Note Name of Resident: Domenico Magaña ATTENDING PHYSICIAN STATEMENT I saw and evaluated the patient. I reviewed the resident's note and discussed the case with the resident. I agree with the resident's findings and plan as documented. SUBJECTIVE: Patient says she is feeling less SOB. OBJECTIVE: Vital Signs Period Temp Pulse Resp BP Sys/Hua Pulse Ox Last 24 Hr 96.1 F-98.3 F 82-96 20-24 152-164/73-83 94-96 HEART: S1S2, RRR LUNGS: Decreased BS throughout ABDOMEN: Obese, soft, non-tender, non-distended, normal BS EXTREMITIES: 1+ edema Laboratory Results - last 24 hr 06/18/17 06/18/17 06/19/17 16:47 21:37 05:58 Sodium Potassium Chloride Carbon Dioxide Anion Gap BUN Creatinine POC Glucometer 231 179 188 Random Glucose Calcium 06/19/17 06/19/17 06:30 11:42 Sodium 135 L Potassium 5.6 H Chloride 96 L Carbon Dioxide 34 H Anion Gap 5 L BUN 37 H Creatinine 1.1 H POC Glucometer 229 Random Glucose 173 H Calcium 9.4 Current Medications Generic Name Dose Route Start Last Admin Trade Name Freq PRN Reason Stop Dose Admin Albuterol Sulfate 1 amp 06/17/17 21:34 Ventolin 0.083% Nebulizer Soln - NEB Q4H PRN SHORT OF BREATH/WHEEZING Albuterol/Ipratropium 1 amp 06/18/17 12:00 06/19/17 11:27 Duoneb - NEB 1 amp RQID [facility] Administration Allopurinol 100 mg 06/17/17 22:00 06/19/17 09:10 Zyloprim - PO 100 mg BID [facility] Administration Aspirin 81 mg 06/18/17 10:00 06/19/17 09:10 Asa - PO 81 mg DAILY [facility] Administration Azithromycin 500 mg 06/18/17 10:00 06/19/17 09:10 Zithromax - PO 500 mg DAILY [facility] Administration Cholecalciferol 2,000 unit 06/18/17 10:00 06/19/17 09:10 Vitamin D3 - PO 2,000 unit DAILY [facility] Administration Furosemide 20 mg 06/19/17 10:00 06/19/17 09:10 Lasix - PO 20 mg Q2D [facility] Administration Guaifenesin 10 ml 06/18/17 13:34 06/18/17 23:35 Robitussin - PO 10 ml Q4H PRN Administration COUGH Heparin Sodium (Porcine) 5,000 unit 06/17/17 22:15 06/19/17 06:02 Heparin - SQ 5,000 unit TID [facility] Administration Insulin Aspart 1 vial 06/17/17 22:13 06/19/17 11:44 Novolog Vial Sliding Scale - SQ 4 unit ACHS [facility] Administration Protocol Levothyroxine Sodium 50 mcg 06/18/17 07:00 06/19/17 06:03 Synthroid - PO 50 mcg DAILY@0700 [facility] Administration Lisinopril 40 mg 06/18/17 10:00 06/19/17 09:10 Prinivil PO 40 mg DAILY [facility] Administration Methylprednisolone Sodium Succinate 40 mg 06/18/17 10:00 06/19/17 09:10 Solu-Medrol - IVPUSH 40 mg BID [facility] Administration ASSESSMENT AND PLAN: This is a 76 year old woman with a history of COPD, CAD, type 2 DM, hypothyroidism, obesity, gout who presented to the ED with shortness of breath. 1. Acute hypoxic respiratory failure secondary to acute exacerbation of COPD - Continue SoluMedrol, DuoNeb, albuterol as needed, Zithromax, Robitussin as needed - Echo shows normal LVEF, E/A reversal 2. Hyperkalemia - No EKG changes noted - Given Kayexalate 3. Type 2 DM - Metformin held - Continue Novolog sliding scale 4. CAD - Continue aspirin, Zocor 5. Hypothyroidism - Continue Synthroid 6. Hypertension - Continue lisinopril, Lasix 7. History of gout - Continue Allopurinol 8. Obesity with BMI 37.9
[2017-06-19] MEDS: guaiFENesin 200 MG/10 ML 10 ML UNIT-DOSE CUPS PO PRN (17:19)
[2017-06-19 18:42] LABS: ANION GAP 8 (8-16); BLOOD UREA NITROGEN 36 mg/dL (7-18); CHLORIDE 95 mmol/L (98-107); CO2 30 mmol/L (21-32); GLUCOSE,RANDOM 161 mg/dL (74-106); POTASSIUM 4.2 mmol/L (3.5-5.1); SODIUM 133 mmol/L (136-145)
[2017-06-20] MEDS: HEPARIN NA (PORCINE) 5,000 UNITS/ML 1ML VIAL SQ SCH ×3 (06:22→21:13)
[2017-06-20] MEDS: LEVOTHYROXINE NA 50 MCG TABLET (FP) PO SCH (06:23)
[2017-06-20] MEDS: INSULIN SLIDING SCALE (NOVOLOG) 1 VIAL SQ SCH ×4 (06:23→21:17)
[2017-06-20] MEDS: ALBUTEROL SO4 2.5/IPRATROPIUM 0.5 INH SOL 3 ML VIAL.NEB. NEB SCH ×4 (07:58→22:03)
[2017-06-20 09:01] LABS: ANION GAP 4 (8-16); BLOOD UREA NITROGEN 35 mg/dL (7-18); CALCIUM 8.7 mg/dL (8.5-10.1); CHLORIDE 96 mmol/L (98-107); CO2 34 mmol/L (21-32); CREATININE 0.9 mg/dL (0.55-1.02); GLUCOSE,RANDOM 179 mg/dL (74-106); POTASSIUM 4.6 mmol/L (3.5-5.1); SODIUM 134 mmol/L (136-145)
[2017-06-20] MEDS: ASPIRIN 81 MG CHEWABLE TABLETS PO SCH (10:01)
[2017-06-20] MEDS: LISINOPRIL 20 MG TABLET (FP) PO SCH (10:02)
[2017-06-20] MEDS: CHOLECALCIFEROL (VITAMIN D3) 1,000 UNIT TABLET (FP) PO SCH (10:02)
[2017-06-20] MEDS: AZITHROMYCIN 250 MG TABLET PO SCH (10:02)
[2017-06-20] MEDS: methylPREDNISolone NA SUCC 40 MG/1 ML VIAL IVPUSH SCH ×2 (10:02→21:13)
[2017-06-20] MEDS: ALLOPURINOL 100 MG TABLET (FP) PO SCH ×2 (10:02→21:13)
[2017-06-20] MEDS ORDERED: INSULIN (NOVOLOG) ASPART 100 UNITS/ML 10ML VIAL ONE (11:23)
--- NOTE | 2017-06-20 17:53 | PN ---
Physical Exam: SUBJECTIVE: Patient seen and examined. She has no complaints. OBJECTIVE: Vital Signs Period Temp Pulse Resp BP Sys/Hua Pulse Ox Last 24 Hr 98 F-98.2 F 74-86 20-20 148-155/67-77 91-92 GENERAL: The patient is awake, alert, and fully oriented, in no acute distress. LUNGS: Diminished breath sounds bilaterally, no accessory muscle use. HEART: Regular rate and rhythm, S1, S2 without murmur, rub or gallop. ABDOMEN: Obese, soft, nontender, nondistended, normoactive bowel sounds, no guarding, no rebound, no hepatosplenomegaly, no masses. EXTREMITIES: 2+ pulses, warm, well-perfused, trace edema. Laboratory Results - last 24 hr 06/19/17 06/19/17 06/20/17 17:50 22:02 05:48 Sodium 133 L Potassium 4.2 Chloride 95 L Carbon Dioxide 30 Anion Gap 8 BUN 36 H Creatinine 1.0 POC Glucometer 176 213 Random Glucose 161 H Calcium 9.0 06/20/17 06/20/17 06/20/17 07:00 11:29 17:22 Sodium 134 L Potassium 4.6 Chloride 96 L Carbon Dioxide 34 H Anion Gap 4 L BUN 35 H Creatinine 0.9 POC Glucometer 156 283 Random Glucose 179 H Calcium 8.7 Active Medications Generic Name Dose Route Start Last Admin Trade Name Freq PRN Reason Stop Dose Admin Albuterol Sulfate 1 amp 06/17/17 21:34 Ventolin 0.083% Nebulizer Soln - NEB Q4H PRN SHORT OF BREATH/WHEEZING Albuterol/Ipratropium 1 amp 06/18/17 12:00 06/20/17 17:14 Duoneb - NEB 1 amp RQID [facility] Administration Allopurinol 100 mg 06/17/17 22:00 06/20/17 10:02 Zyloprim - PO 100 mg BID [facility] Administration Aspirin 81 mg 06/18/17 10:00 06/20/17 10:01 Asa - PO 81 mg DAILY [facility] Administration Azithromycin 500 mg 06/18/17 10:00 06/20/17 10:02 Zithromax - PO 500 mg DAILY [facility] Administration Cholecalciferol 2,000 unit 06/18/17 10:00 06/20/17 10:02 Vitamin D3 - PO 2,000 unit DAILY [facility] Administration Furosemide 20 mg 06/19/17 10:00 06/19/17 09:10 Lasix - PO 20 mg Q2D [facility] Administration Guaifenesin 10 ml 06/18/17 13:34 06/19/17 17:19 Robitussin - PO 10 ml Q4H PRN Administration COUGH Heparin Sodium (Porcine) 5,000 unit 06/17/17 22:15 06/20/17 13:29 Heparin - SQ 5,000 unit TID [facility] Administration Insulin Aspart 1 vial 06/17/17 22:13 06/20/17 17:25 Novolog Vial Sliding Scale - SQ 6 unit ACHS [facility] Administration Protocol Levothyroxine Sodium 50 mcg 06/18/17 07:00 06/20/17 06:23 Synthroid - PO 50 mcg DAILY@0700 [facility] Administration Lisinopril 40 mg 06/18/17 10:00 06/20/17 10:02 Prinivil PO 40 mg DAILY [facility] Administration Methylprednisolone Sodium Succinate 40 mg 06/18/17 10:00 06/20/17 10:02 Solu-Medrol - IVPUSH 40 mg BID [facility] Administration ASSESSMENT/PLAN: This is a 76 year old woman with a history of COPD, CAD, type 2 DM, hypothyroidism, obesity, gout who presented to the ED with shortness of breath. 1. Acute hypoxic respiratory failure secondary to acute exacerbation of COPD - Continue SoluMedrol, DuoNeb, albuterol as needed, Zithromax, Robitussin as needed - Echo shows normal LVEF, E/A reversal 2. Hyperkalemia - Improved 3. Type 2 DM - Metformin held - Continue Novolog sliding scale 4. CAD - Continue aspirin, Zocor 5. Hypothyroidism - Continue Synthroid 6. Hypertension - Continue lisinopril, Lasix 7. History of gout - Continue Allopurinol 8. Obesity with BMI 37.9 9. Disposition - Expect discharge tomorrow - will need home oxygen evaluation Visit type - Emergency Visit Emergency Visit: Yes ED Registration Date: 06/17/17 Care time: The patient presented to the Emergency Department on the above date and was hospitalized for further evaluation of their emergent condition. - New Patient This patient is new to me today: No - Critical Care Critical Care patient: No - Discharge Referral [facility]erred to [facility] Med P.C.: No
[2017-06-21] MEDS: LEVOTHYROXINE NA 50 MCG TABLET (FP) PO SCH (06:16)
[2017-06-21] MEDS: HEPARIN NA (PORCINE) 5,000 UNITS/ML 1ML VIAL SQ SCH ×2 (06:16→14:18)
[2017-06-21] MEDS: INSULIN SLIDING SCALE (NOVOLOG) 1 VIAL SQ SCH ×3 (06:26→17:19)
[2017-06-21] MEDS ORDERED: INSULIN (NOVOLOG) ASPART 100 UNITS/ML 10ML VIAL ONE (06:28)
[2017-06-21] MEDS: ALBUTEROL SO4 2.5/IPRATROPIUM 0.5 INH SOL 3 ML VIAL.NEB. NEB SCH ×3 (07:30→15:45)
[2017-06-21 07:45] LABS: ANION GAP 7 (8-16); BLOOD UREA NITROGEN 32 mg/dL (7-18); CALCIUM 9.1 mg/dL (8.5-10.1); CHLORIDE 95 mmol/L (98-107); CO2 35 mmol/L (21-32); CREATININE 0.9 mg/dL (0.55-1.02); GLUCOSE,RANDOM 171 mg/dL (74-106); POTASSIUM 4.4 mmol/L (3.5-5.1); SODIUM 137 mmol/L (136-145)
[2017-06-21 10:05] VITALS: PULSE 102
[2017-06-21] MEDS: methylPREDNISolone NA SUCC 40 MG/1 ML VIAL IVPUSH SCH (10:16)
[2017-06-21] MEDS: LISINOPRIL 20 MG TABLET (FP) PO SCH (10:16)
[2017-06-21] MEDS: ASPIRIN 81 MG CHEWABLE TABLETS PO SCH (10:16)
[2017-06-21] MEDS: ALLOPURINOL 100 MG TABLET (FP) PO SCH (10:16)
[2017-06-21] MEDS: CHOLECALCIFEROL (VITAMIN D3) 1,000 UNIT TABLET (FP) PO SCH (10:16)
[2017-06-21] MEDS: FUROSEMIDE 20 MG TABLET (FP) PO SCH (10:16)
--- NOTE | 2017-06-21 10:51 | PN ---
Teaching Attending Note Name of Resident: Domenico Magaña ATTENDING PHYSICIAN STATEMENT I saw and evaluated the patient. I reviewed the resident's note and discussed the case with the resident. I agree with the resident's findings and plan as documented. SUBJECTIVE: OBJECTIVE: Vital Signs Period Temp Pulse Resp BP Sys/Hua Pulse Ox Last 24 Hr 97.6 F-98.7 F 75-102 18-20 149-158/66-77 89-91 Laboratory Results - last 24 hr 06/20/17 06/20/17 06/20/17 11:29 17:22 21:12 Sodium Potassium Chloride Carbon Dioxide Anion Gap BUN Creatinine POC Glucometer 156 283 221 Random Glucose Calcium 06/21/17 06/21/17 05:46 06:40 Sodium 137 Potassium 4.4 Chloride 95 L Carbon Dioxide 35 H Anion Gap 7 L BUN 32 H Creatinine 0.9 POC Glucometer 189 Random Glucose 171 H Calcium 9.1 Current Medications Generic Name Dose Route Start Last Admin Trade Name Freq PRN Reason Stop Dose Admin Albuterol Sulfate 1 amp 06/17/17 21:34 Ventolin 0.083% Nebulizer Soln - NEB Q4H PRN SHORT OF BREATH/WHEEZING Albuterol/Ipratropium 1 amp 06/18/17 12:00 06/21/17 07:30 Duoneb - NEB 1 amp RQID [facility] Administration Allopurinol 100 mg 06/17/17 22:00 06/21/17 10:16 Zyloprim - PO 100 mg BID [facility] Administration Aspirin 81 mg 06/18/17 10:00 06/21/17 10:16 Asa - PO 81 mg DAILY [facility] Administration Cholecalciferol 2,000 unit 06/18/17 10:00 06/21/17 10:16 Vitamin D3 - PO 2,000 unit DAILY [facility] Administration Furosemide 20 mg 06/19/17 10:00 06/21/17 10:16 Lasix - PO 20 mg Q2D [facility] Administration Guaifenesin 10 ml 06/18/17 13:34 06/19/17 17:19 Robitussin - PO 10 ml Q4H PRN Administration COUGH Heparin Sodium (Porcine) 5,000 unit 06/17/17 22:15 06/21/17 06:16 Heparin - SQ 5,000 unit TID [facility] Administration Insulin Aspart 1 vial 06/17/17 22:13 06/21/17 06:26 Novolog Vial Sliding Scale - SQ 2 unit ACHS [facility] Administration Protocol Levothyroxine Sodium 50 mcg 06/18/17 07:00 06/21/17 06:16 Synthroid - PO 50 mcg DAILY@0700 [facility] Administration Lisinopril 40 mg 06/18/17 10:00 06/21/17 10:16 Prinivil PO 40 mg DAILY [facility] Administration Methylprednisolone Sodium Succinate 40 mg 06/18/17 10:00 06/21/17 10:16 Solu-Medrol - IVPUSH 40 mg BID [facility] Administration ASSESSMENT AND PLAN:
--- NOTE | 2017-06-21 14:11 | PN ---
Progress Note (short form) - Note Progress Note: Patient satting 85% resting without oxygen, 88% exercising without oxygen, and 89% exercising with o2 on 6L. Patient will be discharged home today with O2.
--- NOTE | 2017-06-21 15:33 | DS ---
Physical Exam: Selected Entries 06/21/17 06/21/17 06:17 10:05 Temperature 97.6 F Pulse Rate 102 H Blood Pressure 152/77 O2 Sat by Pulse 89 L Oximetry (%) Laboratory Tests 06/17/17 06/18/17 06/21/17 19:45 07:00 06:40 WBC 6.4 Hgb 13.3 Hct 40.1 Plt Count 246 Sodium 137 Potassium 4.4 Chloride 95 L Carbon Dioxide 35 H Anion Gap 7 L BUN 32 H Creatinine 0.9 Random Glucose 171 H Troponin I 0.02 B-Natriuretic Peptide 648.58 H Microbiology 06/17/17 19:54 Blood - Peripheral Venous Blood Culture - Preliminary NO GROWTH OBTAINED AFTER 72 HOURS, INCUBATION TO CONTINUE FOR 2 DAYS. 06/17/17 19:54 Blood - Peripheral Venous Blood Culture - Preliminary NO GROWTH OBTAINED AFTER 72 HOURS, INCUBATION TO CONTINUE FOR 2 DAYS. CXR- No evidence of acute infiltrate Echo- No abnormalities, study was poor quality HOSPITAL COURSE: Date of Admission:06/17/17 Date of Discharge: 06/21/17 76 year old female with a history of COPD, CAD, DM, hypothyroid, and gout presented to the hospital for shortness of breath and admitted for acute copd exacerbation. Patient was treated with Duonebs qidr, albuterol prn, solumederol 40 bid, zithromax 500 mg, and spiriva for 4 days. Patient improved clinically. Echocardiogram was done (results above). On day of discharge, patient satting 85 % resting without oxygen, 88% exercising without oxygen, and 89% exercising with o2 on 6L. Patient will be discharged home today with home O2, spiriva, symbicort, and a prednisone taper x 8 days. She will follow up with her pcp and pulmonology. Minutes to complete discharge: 43 Discharge Summary Reason For Visit: HYPOXIA,CHRONIC OBSTC PULMONARY DISEASE Current Active Problems COPD (chronic obstructive pulmonary disease) (Acute) CAD (coronary artery disease) (Chronic) Diabetes mellitus (Chronic) Gout (Chronic) HTN (hypertension) (Chronic) Hypothyroidism (Chronic) Obesity (Chronic) Condition: Stable - Instructions Diet, Activity, Other Instructions: You were in the hospital for an exacerbation of your COPD. Please follow up with your primary care provider, Dr. Mccloud within 1 week. Please follow up with a [facility] within 1 week. A referral for Dr. Valderrama has been provided for you. A referral for pulmonary rehabilitation has been provided for you. Please take Prednsione for the next 8 days: -40 mg daily x 2 days (4 tablets) -30 mg daily x 2 days (4 tablets) -20 mg daily x 2 days (4 tablets) -10 mg daily x 2 days (4 tablets) -STOP Continue taking your home medications as prescribed. Start using Spiriva 1 inhalation daily and Symbicort 2 inhalations twice per day. If you have chest pain, shortness of breath, or any new/worsening symptoms please come back to the hospital immediately. Referrals: Pritesh Valderrama MD [Staff Physician] - Leonel Mccloud MD [Primary Care Provider] - Disposition: HOME - Home Medications Comprehensive Discharge Medication List: Ambulatory Orders Albuterol Sulfate [Proair Hfa] 8.5 gm IH PRN 06/17/17 Allopurinol [Zyloprim -] 100 mg PO BID 06/17/17 Aspirin [ASA -] 81 mg PO DAILY 06/17/17 Cholecalciferol (Vitamin D3) [Vitamin D3] 2,000 unit PO DAILY 06/17/17 Furosemide 20 mg PO Q2D 06/17/17 Levothyroxine [Synthroid -] 50 mcg PO DAILY 06/17/17 Lisinopril [Prinivil -] 40 mg PO DAILY 06/17/17 Metformin HCl 500 mg PO BID 06/17/17 Simvastatin 20 mg PO DAILY 06/17/17 Budesonide/Formeterol Fumarate [SYMBICORT 160/4.5mcg -] 2 inh PO BID #1 cannister 06/21/17 Miscellaneous Drug Not In Syst [Outpatient Lab Test] 1 each ASDIR #1 misc 11/30 Prednisone See Taper PO DAILY #20 tablet 06/21/17 Tiotropium [place] [Spiriva] 18 mcg IH DAILY #30 cap.w.dev 06/21/17 This patient is new to me today: No Emergency Visit: Yes ED Registration Date: 06/17/17 Care time: The patient presented to the Emergency Department on the above date and was hospitalized for further evaluation of their emergent condition. Critical Care patient: No - Discharge Referral Referred to [facility] Med P.C.: No
--- NOTE | 2017-06-21 18:28 | PN ---
Teaching Attending Note Name of Resident: Domenico Magaña ATTENDING PHYSICIAN STATEMENT I saw and evaluated the patient. I reviewed the resident's note and discussed the case with the resident. I agree with the resident's findings and plan as documented. SUBJECTIVE: Patient has no complaints. OBJECTIVE: Vital Signs Period Temp Pulse Resp BP Sys/Hua Pulse Ox Last 24 Hr 97.6 F-98.7 F 75-102 18-20 152-158/76-77 89-91 HEART: S1S2, RRR LUNGS: Clear with diminished BS ABDOMEN: Obese, soft, non-tender, non-distended, normal BS EXTREMITIES: No edema Laboratory Results - last 24 hr 06/20/17 06/21/17 06/21/17 21:12 05:46 06:40 Sodium 137 Potassium 4.4 Chloride 95 L Carbon Dioxide 35 H Anion Gap 7 L BUN 32 H Creatinine 0.9 POC Glucometer 221 189 Random Glucose 171 H Calcium 9.1 06/21/17 17:17 Sodium Potassium Chloride Carbon Dioxide Anion Gap BUN Creatinine POC Glucometer 350 Random Glucose Calcium Current Medications Generic Name Dose Route Start Last Admin Trade Name Freq PRN Reason Stop Dose Admin Albuterol Sulfate 1 amp 06/17/17 21:34 Ventolin 0.083% Nebulizer Soln - NEB Q4H PRN SHORT OF BREATH/WHEEZING Albuterol/Ipratropium 1 amp 06/18/17 12:00 06/21/17 15:45 Duoneb - NEB 1 amp RQID [facility] Administration Allopurinol 100 mg 06/17/17 22:00 06/21/17 10:16 Zyloprim - PO 100 mg BID [facility] Administration Aspirin 81 mg 06/18/17 10:00 06/21/17 10:16 Asa - PO 81 mg DAILY [facility] Administration Cholecalciferol 2,000 unit 06/18/17 10:00 06/21/17 10:16 Vitamin D3 - PO 2,000 unit DAILY [facility] Administration Furosemide 20 mg 06/19/17 10:00 06/21/17 10:16 Lasix - PO 20 mg Q2D [facility] Administration Guaifenesin 10 ml 06/18/17 13:34 06/19/17 17:19 Robitussin - PO 10 ml Q4H PRN Administration COUGH Heparin Sodium (Porcine) 5,000 unit 06/17/17 22:15 04/09/18 14:18 Heparin - SQ 5,000 unit TID [facility] Administration Insulin Aspart 1 vial 06/17/17 22:13 06/21/17 17:19 Novolog Vial Sliding Scale - SQ 10 unit ACHS [facility] Administration Protocol Levothyroxine Sodium 50 mcg 06/18/17 07:00 06/21/17 06:16 Synthroid - PO 50 mcg DAILY@0700 [facility] Administration Lisinopril 40 mg 06/18/17 10:00 06/21/17 10:16 Prinivil PO 40 mg DAILY [facility] Administration Methylprednisolone Sodium Succinate 40 mg 06/18/17 10:00 06/21/17 10:16 Solu-Medrol - IVPUSH 40 mg BID [facility] Administration ASSESSMENT AND PLAN: This is a 76 year old woman with a history of COPD, CAD, type 2 DM, hypothyroidism, obesity, gout who presented to the ED with shortness of breath. 1. Acute hypoxic respiratory failure secondary to acute exacerbation of COPD - Continue SoluMedrol, DuoNeb, albuterol as needed, Zithromax, Robitussin as needed - Echo shows normal LVEF, E/A reversal 2. Hyperkalemia - Improved 3. Type 2 DM - Metformin held - Continue Novolog sliding scale 4. CAD - Continue aspirin, Zocor 5. Hypothyroidism - Continue Synthroid 6. Hypertension - Continue lisinopril, Lasix 7. History of gout - Continue Allopurinol 8. Obesity with BMI 38.1 9. Disposition - Ok for discharge home on Prednisone taper, Symbicort, Spiriva, with oxygen and pulmonary rehab
[2017-06-21 19:03] VITALS: BP 161/67; TEMP 97.5
== END 2017-06-21 18:58 | disposition home or self-care (01) | DRG 190 ==
LOC: JER 17:05 → JERBED 21:19 → OBSVTOIN 21:34 → J8W 06-18 00:28 → J6S 06-20 14:55
PROVIDERS: ADMIT Internal Medicine; ATTEND Internal Medicine
DX: J44.1 Chronic obstructive pulmonary disease with (acute) exacerbation (principal); J96.01 Acute respiratory failure with hypoxia; E11.9 Type 2 diabetes mellitus without complications; I25.10 Atherosclerotic heart disease of native coronary artery without angina pectoris; E03.9 Hypothyroidism, unspecified; I10 Essential (primary) hypertension; E87.5 Hyperkalemia; E66.9 Obesity, unspecified; Z68.37 Body mass index [BMI] 37.0-37.9, adult; M10.9 Gout, unspecified; F17.210 Nicotine dependence, cigarettes, uncomplicated
CPT/HCPCS: 36415; 71045-TC-FY; 80048; 80053; 82550; 82962; 83735; 83880; 84100; 84484; 85025; 85027; 85610; 87040; 93005; 93010; 93306-TC; 94640; 94761; 97116-GP; 97161-GP; 99284-25; G0378; J1644; J7030

== ENCOUNTER 2019-04-16 12:29 | Emergency (ER) | payer OTHER, MEDICARE ==
[2019-04-16 12:33] VITALS: BMI 29.8
--- NOTE | 2019-04-16 13:14 | PDOC ---
History of Present Illness - General Chief Complaint: Injury Stated Complaint: FA Time Seen by Provider: 04/16/19 12:37 - History of Present Illness Initial Comments: Ms. Aguilar is a 78 y/o female with PMH significant for COPD, HTN, DM, presenting today s/p mechanical fall. Reports that she got up out of her chair when she loss her balance and fell forward hitting her left knee. Denies LOC/ head injury/dizziness/heart palpitations. Reports that she has a hx of imbalance over the past year and most recent fall was 2 years ago. Denies chest pain/shortness of breath/abd pain/dysuria. Reports left knee tenderness and swelling and bruising. Lives alone. Ambulates on her own but not able to get up s/p fall. Has a walker and cane but only uses it when walking outside. Past History - Past Medical History Allergies/Adverse Reactions: Allergies Allergy/AdvReac Type Severity Reaction Status Date / Time Quinolones Allergy Severe Verified 04/16/19 12:33 colchicine AdvReac Verified 04/16/19 12:33 Home Medications: Ambulatory Orders Albuterol Sulfate [Proair Hfa] 8.5 gm IH PRN 06/17/17 Allopurinol [Zyloprim -] 100 mg PO BID 06/17/17 Aspirin [ASA -] 81 mg PO DAILY 06/17/17 Cholecalciferol (Vitamin D3) [Vitamin D3] 2,000 unit PO DAILY 06/17/17 Furosemide 20 mg PO Q2D 06/17/17 Levothyroxine [Synthroid -] 50 mcg PO DAILY 06/17/17 Lisinopril [Prinivil -] 40 mg PO DAILY 06/17/17 Simvastatin 20 mg PO DAILY 06/17/17 metFORMIN HCL [Metformin HCl] 500 mg PO BID 06/17/17 Budesonide/Formeterol Fumarate [SYMBICORT 160/4.5mcg -] 2 inh PO BID #1 cannister 06/21/17 Miscellaneous Drug Not In Syst [Outpatient Lab Test] 1 each ASDIR #1 misc 11/30 Prednisone See Taper PO DAILY #20 tablet 06/21/17 Tiotropium [place] [Spiriva] 18 mcg IH DAILY #30 cap.w.dev 06/21/17 COPD: Yes Diabetes: Yes HTN: Yes - Psycho Social/Smoking Cessation Hx Smoking History: Never smoked Hx Alcohol Use: No Drug/Substance Use Hx: No Review of Systems - Review of Systems Comments:: GENERAL/CONSTITUTIONAL: No fever or chills. No weakness._ HEAD, EYES, EARS, NOSE AND THROAT: No change in vision. No change in hearing. No sore throat._ CARDIOVASCULAR: No chest pain or shortness of breath_ RESPIRATORY: Denies cough, hemoptysis_ GASTROINTESTINAL: No nausea, vomiting, diarrhea or constipation._ GENITOURINARY: No dysuria, frequency, or change in urination._ MUSCULOSKELETAL: Left knee swelling and bruising. SKIN: No rash_ NEUROLOGIC: No headache, vertigo, loss of consciousness, or change in strength/ sensation._ ENDOCRINE: No increased thirst. No abnormal weight change_ HEMATOLOGIC/LYMPHATIC: No anemia, easy bleeding, or history of blood clots._ ALLERGIC/IMMUNOLOGIC: No hives or skin allergy._ *Physical Exam - Vital Signs Last Vital Signs Temp Pulse Resp BP Pulse Ox 97.5 F L 96 H 18 177/72 H 100 04/16/19 12:30 04/16/19 12:30 04/16/19 12:30 04/16/19 12:30 04/16/19 12:30 - Physical Exam GENERAL: Awake, alert, and oriented to person/place/time, in no acute distress_ HEAD: No signs of trauma, normocephalic, atraumatic _ EYES: PERRLA, EOMI, sclera anicteric, conjunctiva clear_ ENT: Hearing grossly normal, nares patent, oropharynx clear without exudates. No uvular deviation. Moist mucosa_ NECK: Normal ROM, supple, no lymphadenopathy, JVD, or masses. No midline c- spine TTP. LUNGS: No distress, speaks in full sentences, clear to auscultation bilaterally _ HEART: Regular rate and rhythm, normal S1 and S2, no murmurs appreciated, peripheral pulses normal and equal bilaterally._ ABDOMEN: Soft, nontender, normoactive bowel sounds. No guarding, no rebound. No masses_ EXTREMITIES: Large ecchymosis and hematoma measuring 10cm x 8cm over the left knee with tenderness to palpation. No TTP to medial or lateral aspects of left knee. Otherwise neurovascularly intact distally bilaterally. NEUROLOGICAL: Cranial nerves II through XII grossly intact. Normal speech, no focal sensorimotor deficits _ SKIN: Warm, Dry, normal turgor, no rashes or lesions noted_ ED Treatment Course - LABORATORY CBC & Chemistry Diagram: 04/16/19 13:16 04/16/19 13:16 - RADIOLOGY Radiology Studies Ordered: Category Date Time Status CERVICAL SPINE CT W/O CONTR [CT] Stat CT Scan 04/16/19 12:[address] WITHOUT CONTRAST [CT] Stat CT Scan 04/16/19 12:56 Ordered CHEST X-RAY PORTABLE* [RAD] Stat Radiology 04/16/19 12:56 Ordered HIP & PELVIS-LEFT [RAD] Stat Radiology 04/16/19 12:58 Ordered HIP & PELVIS-RIGHT [RAD] Stat Radiology 04/16/19 12:58 Ordered KNEE 3 POS-LEFT [RAD] Stat Radiology 04/16/19 12:56 Ordered Medical Decision Making - Medical Decision Making 04/16/19 13:15 78F hx of COPD HTN DM presenting s/p mechanical fall with ecchymosis and hematoma over the left knee. -cbc, cmp -ekg, trop, cxr -XR left knee with sunrise view -ct head/neck 04/16/19 14:22 EKG shows NSR, 96 bpm, no ST elevation, QTc 437. 04/16/19 17:00 XR shows no fracture of the femur, patella, tib/fib. CT head negative for acute intracranial pathology. CT neck negative for fracture. Labs reviewed. Laboratory Tests 04/16/19 04/16/19 04/16/19 13:16 13:16 13:16 WBC 10.3 H RBC 4.69 Hgb 14.4 Hct 43.6 MCV 92.9 MCH 30.7 MCHC 33.1 RDW 15.9 H Plt Count 292 MPV 7.5 Absolute Neuts (auto) 8.2 H Neutrophils % 79.7 Lymphocytes % 13.5 D Monocytes % 4.9 Eosinophils % 1.0 D Basophils % 0.9 Nucleated RBC % 0 Sodium 134 L Potassium 4.7 Chloride 98 Carbon Dioxide 28 Anion Gap 8 BUN 30.7 H Creatinine 1.1 Est GFR (CKD-EPI)AfAm 55.69 Est GFR (CKD-EPI)NonAf 48.05 Random Glucose 141 H Calcium 9.9 Total Bilirubin 0.2 AST 29 ALT 22 Alkaline Phosphatase 110 Creatine Kinase 41 46 Troponin I < 0.02 Total Protein 6.9 Albumin 3.1 L 04/16/19 18:12 Pt reassessed. Swelling has significantly improved. Pt able to ambulate, bear weight, and go to the bathroom on her own. D/w extensively with the pt and the pt's niece. Plan to d/c home. Niece will stay with her for the night, and pt will go to niece's home for the week to have someone near by. All questions answered. Pt verbalized understanding and agreement with plan. Return precautions given. Discharge - Discharge Information Problems reviewed: Yes Clinical Impression/Diagnosis: Fall Qualifiers: Encounter type: initial encounter Qualified Code(s): W19.XXXA - Unspecified fall, initial encounter Condition: Stable Disposition: HOME - Admission No - Follow up/Referral Referrals: Leonel Mccloud MD [Primary Care Provider] - - Patient Discharge Instructions Patient Printed Discharge Instructions: How to Prevent Falls Additional Instructions: Please take Tylenol or Motrin as needed for any pain. If you experience any new, worsening or concerning symptoms, including increase or change in swelling of the knee, change in color, inability to bear weight, or any other concerns, please return to the emergency department. - Post Discharge Activity
[2019-04-16 13:29] LABS: BASO % 0.9 % (0-2.0); HEMATOCRIT 43.6 % (32.4-45.2); HEMOGLOBIN 14.4 GM/dL (10.7-15.3); LYMPH % 13.5 % (8-40); MCH 30.7 pg (25.7-33.7); MCHC 33.1 g/dl (32.0-36.0); MEAN CELL VOLUME 92.9 fl (80-96); MEAN PLT VOLUME 7.5 fl (7.5-11.1); MONO % 4.9 % (3.8-10.2); NEUT % 79.7 % (42.8-82.8); PLATELET COUNT 292 K/MM3 (134-434); RBC 4.69 M/mm3 (3.60-5.2); RDW 15.9 % (11.6-15.6); WHITE BLOOD COUNT 10.3 K/mm3 (4.0-10.0)
[2019-04-16] MEDS ORDERED: morphine CARPU-JECT 4 MG/1 ML DISP.SYRIN IVPUSH ONE (13:31)
[2019-04-16] MEDS ORDERED: ACETAMINOPHEN 1000 MG/100 ML VIAL (NON FORMULARY) IVPB ONE (13:31)
--- NOTE | 2019-04-16 13:37 | PDOC ---
Documentation entered by Sharmila Truong SCRIBE, acting as scribe for Riaz Urrutia MD. Riaz Urrutia MD: This documentation has been prepared by the Dionne gallegos Nirvannie, SCRIBE, under my direction and personally reviewed by me in its entirety. I confirm that the documentation accurately reflects all work, treatment, procedures, and medical decision making performed by me. Attending Attestation - Resident Resident Name: CruzKvng - ED Attending Attestation I have performed the following: I have examined & evaluated the patient, The case was reviewed & discussed with the resident, I agree w/resident's findings & plan, Exceptions are as noted - HPI HPI: 04/16/19 12:56 The patient is a 78 year old female, with a significant past medical history of COPD, CAD, [id number] diabetes, Gout, HTN, hypothyroidism, who presents to the emergency department s/p unwitnessed mechanical fall. As per patient, she tripped, lost her balance and subsequently fell onto her left knee. Pt denies headstrike/LOC. Was unable to get up afterwards due to severe pain in her L knee. No neck or back pain. no hip or ankle pain. Allergies: Quinolones, Colchicine. Primary Care Physician: Dr. Mccloud - Physicial Exam PE: 04/16/19 13:38 "GENERAL: Awake, alert, and fully oriented, in no acute distress. HEAD: No signs of trauma EYES: PERRLA, EOMI, sclera anicteric, conjunctiva clear ENT: Auricles normal inspection, hearing grossly normal, nares patent, oropharynx clear without exudates. Moist mucosa NECK: Nontender, no stepoffs, Normal ROM, supple, no lymphadenopathy, JVD, or masses LUNGS: Breath sounds equal, clear to auscultation bilaterally. No wheezes, and no crackles HEART: Regular rate and rhythm, normal S1 and S2, no murmurs, rubs or gallops ABDOMEN: Soft, nontender, normoactive bowel sounds. No guarding, no rebound. No masses EXTREMITIES: + Large L knee effusion with large hematoma, distal pulses and sensation intact NEUROLOGICAL: Cranial nerves II through XII intact. 5/5 strength and sensation in all extremities, Normal speech, normal gait, normal cerebellar function SKIN: Warm, Dry, normal turgor, no rashes or lesions noted. - Medical Decision Making 04/16/19 13:39 78 F with L knee injury after fall. Suspect fracture. - Labs - CT head/c-spine - XR L knee, femur, hip - Pain control Pt signed out to Dr. Espino at 4:30, pending imaging and re-evaluation.
[2019-04-16] MEDS ORDERED: ACETAMINOPHEN INJECTION 100 ML IVPB ONE (13:41)
[2019-04-16] MEDS ORDERED: morphine SULFATE 4 MG/ML VIAL ONE (13:41)
[2019-04-16 14:01] LABS: ALBUMIN 3.1 g/dl (3.4-5.0); BILIRUBIN,TOTAL 0.2 mg/dL (0.2-1); BLOOD UREA NITROGEN 30.7 mg/dL (7-18); CALCIUM 9.9 mg/dL (8.5-10.1); CREATININE 1.1 mg/dL (0.55-1.3); POTASSIUM 4.7 mmol/L (3.5-5.1); TOT PROT 6.9 g/dl (6.4-8.2)
[2019-04-16] MEDS ORDERED: ONDANSETRON 4 MG/2 ML VIAL IVPUSH ONE (14:08)
[2019-04-16] MEDS ORDERED: ONDANSETRON 4 MG/2 ML VIAL ONE (14:14)
[2019-04-16 18:45] VITALS: BP 133/68; PULSE 72; TEMP 98.5
--- NOTE | 2019-04-17 09:20 | EKG ---
Test Reason : Blood Pressure : / mmHG Vent. Rate : 096 BPM Atrial Rate : 096 BPM P-R Int : 136 ms QRS Dur : 068 ms QT Int : 346 ms P-R-T Axes : 070 -12 048 degrees QTc Int : 437 ms NORMAL SINUS RHYTHM LOW VOLTAGE QRS INFERIOR INFARCT , AGE UNDETERMINED CANNOT RULE OUT ANTERIOR INFARCT (CITED ON OR BEFORE 09-APR-2008) ABNORMAL ECG WHEN COMPARED WITH ECG OF 19-JUN-2017 10:54, INFERIOR INFARCT IS NOW PRESENT Confirmed by Froilan Sanchez ([id number]) on 04/17/2019 9:20:23 AM Referred By: Confirmed By:Froilan Sanchez
== END 2019-04-16 18:52 | disposition home or self-care (01) ==
LOC: JER 12:29
PROC: 3E033GC Introduction of Other Therapeutic Substance into Peripheral Vein, Percutaneous Approach (ICD-10-PCS; principal; 2019-04-16)
PROC: 3E033NZ Introduction of Analgesics, Hypnotics, Sedatives into Peripheral Vein, Percutaneous Approach (ICD-10-PCS; 2019-04-16)
PROC: 3E033NZ Introduction of Analgesics, Hypnotics, Sedatives into Peripheral Vein, Percutaneous Approach (ICD-10-PCS; 2019-04-16)
DX: M25.462 Effusion, left knee (principal); S80.02XA Contusion of left knee, initial encounter; W18.39XA Other fall on same level, initial encounter; Y93.89 Activity, other specified; Y92.038 Other place in apartment as the place of occurrence of the external cause; Y99.8 Other external cause status; I25.10 Atherosclerotic heart disease of native coronary artery without angina pectoris; I10 Essential (primary) hypertension; E11.9 Type 2 diabetes mellitus without complications; Z79.84 Long term (current) use of oral hypoglycemic drugs; E03.9 Hypothyroidism, unspecified; J44.9 Chronic obstructive pulmonary disease, unspecified; M10.9 Gout, unspecified
CPT/HCPCS: 36415; 70450-TC; 71045-TC-FY; 72125-TC; 73523-TC-FY; 73552-TC-LT-FY; 73562-TC-LT-FY; 73590-TC-LT-FY; 80053; 82550; 84484; 85025; 93005; 93010; 96374; 96375; 99284-25; J0131

== ENCOUNTER 2020-12-31 17:40 | Inpatient (IN) | payer OTHER, MEDICARE ==
[2020-12-31] MEDS ORDERED: ALBUTEROL SO4 0.042% IH SOL 1.25 MG/3 ML VIAL.NEB NEB ONE (17:57)
[2020-12-31 18:45] LABS: BASO % 4.8 % (0-2.0); HEMATOCRIT 39.3 % (32.4-45.2); HEMOGLOBIN 13.4 GM/dl (10.7-15.3); LYMPH % 14.1 % (8-40); MCH 30.6 pg (25.7-33.7); MCHC 34.1 g/dl (32.0-36.0); MEAN CELL VOLUME 89.7 fl (80-96); MEAN PLT VOLUME 7.7 fl (7.5-11.1); MONO % 4.8 % (3.8-10.2); NEUT % 75.3 % (42.8-82.8); PLATELET COUNT 286 10^3/uL (134-434); RBC 4.38 M/mm3 (3.60-5.2); RDW 15.1 % (11.6-15.6); WHITE BLOOD COUNT 10.2 K/mm3 (4.0-10.8)
[2020-12-31] MEDS ORDERED: ALBUTEROL SO4 0.083% IH SOL 2.5 MG/3 ML VIAL.NEB. NEB ONE (18:47)
[2020-12-31 18:57] LABS: ALBUMIN 2.7 g/dl (3.4-5.0); ALK PHOS 101 U/L (45-117); ANION GAP 18 MMOL/L (8-16); BILIRUBIN,TOTAL 0.3 mg/dl (0.2-1); CALCIUM 8.9 mg/dl (8.5-10); CHLORIDE 91 mmol/L (98-107); CO2 30 mmol/L (21-32); CREATININE 1.3 mg/dl (0.55-1.3); GLUCOSE,RANDOM 184 mg/dl (74-106); SGOT/AST 23 U/L (15-37); SGPT/ALT 16 U/L (13-61); SODIUM 139 mmol/L (136-145); TOT PROT 6.3 g/dl (6.4-8.2)
[2020-12-31 20:08] LABS: VENOUS O2 SATURATION 67.7 % (70-80); VENOUS PCO2 61.4 mmHg (38-52); VENOUS PH 7.368 (7.310-7.410)
[2020-12-31] MEDS ORDERED: POTASSIUM CHLORIDE TABS 20 MEQ TABLET.ER (FP) PO ONE ×2 (20:30→20:45)
[2020-12-31 20:31] LABS: N-TERMINAL BNP 1499.1 pg/ml (5-450)
[2020-12-31 20:54] LABS: EPITHELIAL CELLS FEW /hpf
[2020-12-31] MEDS ORDERED: CEFTRIAXONE 250 MG in DEXTROSE 5%-WATER - 50 ML IVPB ONE (23:46)
[2021-01-01] MEDS ORDERED: ALBUTEROL SO4 HFA INHALER IH PRN (03:15)
[2021-01-01] MEDS: LISINOPRIL 20 MG TABLET PO SCH ×2 (03:34→10:54)
[2021-01-01 04:34] VITALS: BMI 34.1
[2021-01-01] MEDS: HEPARIN NA (PORCINE) 5,000 UNITS/ML 1ML VIAL SQ SCH ×3 (06:40→21:15)
[2021-01-01 07:30] LABS: BASO % 1.3 % (0-2.0); EOS % 0.9 % (0-4.5); HEMATOCRIT 37.1 % (32.4-45.2); HEMOGLOBIN 12.1 GM/dl (10.7-15.3); LYMPH % 20.9 % (8-40); MCH 29.3 pg (25.7-33.7); MCHC 32.7 g/dl (32.0-36.0); MEAN CELL VOLUME 89.7 fl (80-96); MEAN PLT VOLUME 7.2 fl (7.5-11.1); NEUT % 71.9 % (42.8-82.8); PLATELET COUNT 272 10^3/uL (134-434); RBC 4.14 M/mm3 (3.60-5.2); RDW 15.1 % (11.6-15.6); WHITE BLOOD COUNT 9.1 K/mm3 (4.0-10.8)
[2021-01-01 07:45] LABS: CREATININE 1.2 mg/dl (0.55-1.3)
[2021-01-01 07:46] LABS: CALCIUM 8.5 mg/dl (8.5-10)
[2021-01-01] MEDS: HYDROCHLOROTHIAZIDE 25 MG TABLET (FP) PO SCH (10:53)
[2021-01-01] MEDS: ALLOPURINOL 100 MG TABLET (FP) PO SCH ×2 (10:54→21:18)
[2021-01-01] MEDS: ATORVASTATIN CA 10 MG TABLET (FP) PO SCH (10:54)
[2021-01-01] MEDS: SERTRALINE HCL 50 MG TABLET (FP) PO SCH (10:54)
[2021-01-01] MEDS ORDERED: cefTRIAXone SODIUM 1 GM VIAL ONE (11:06)
[2021-01-01] MEDS ORDERED: DEXTROSE 5%-WATER - 50 ML IVPB ONE (11:06)
[2021-01-01] MEDS: ALBUTEROL SO4 2.5/IPRATROPIUM 0.5 INH SOL 3 ML VIAL.NEB. NEB SCH ×3 (11:09→21:14)
[2021-01-01] MEDS: methylPREDNISolone NA SUCC 40 MG/1 ML VIAL IVPUSH SCH ×2 (11:09→18:27)
[2021-01-01] MEDS: CEFTRIAXONE 1 GM in DEXTROSE 5%-WATER - 50 ML IVPB SCH (11:10)
[2021-01-01] MEDS: ASPIRIN 81 MG CHEWABLE TABLETS PO SCH (13:51)
[2021-01-01] MEDS: POTASSIUM CHLORIDE TABS 20 MEQ TABLET.ER (FP) PO SCH ×2 (13:52→18:47)
[2021-01-01] MEDS: INSULIN SLIDING SCALE (NOVOLOG) 1 VIAL SQ SCH ×2 (16:55→21:17)
[2021-01-02] MEDS ORDERED: CEFTRIAXONE 500 MG in DEXTROSE 5%-WATER - 50 ML IVPB SCH
[2021-01-02] MEDS: methylPREDNISolone NA SUCC 40 MG/1 ML VIAL IVPUSH SCH ×2 (02:19→10:50)
[2021-01-02] MEDS: HEPARIN NA (PORCINE) 5,000 UNITS/ML 1ML VIAL SQ SCH ×2 (06:20→15:07)
[2021-01-02] MEDS: INSULIN SLIDING SCALE (NOVOLOG) 1 VIAL SQ SCH ×2 (06:21→12:02)
[2021-01-02 08:13] LABS: ALBUMIN 2.7 g/dl (3.4-5.0); BILIRUBIN,TOTAL 0.4 mg/dl (0.2-1); CALCIUM 9.1 mg/dl (8.5-10); CREATININE 1.2 mg/dl (0.55-1.3); MAGNESIUM 1.6 mg/dL (1.8-2.4); TOT PROT 6.3 g/dl (6.4-8.2)
[2021-01-02 08:16] LABS: BASO % 1.5 % (0-2.0); HEMATOCRIT 39.7 % (32.4-45.2); LYMPH % 9.2 % (8-40); MCH 29.6 pg (25.7-33.7); MCHC 32.7 g/dl (32.0-36.0); MEAN CELL VOLUME 90.6 fl (80-96); MEAN PLT VOLUME 8.3 fl (7.5-11.1); MONO % 1.2 % (3.8-10.2); NEUT % 88.1 % (42.8-82.8); PLATELET COUNT 264 10^3/uL (134-434); RBC 4.38 M/mm3 (3.60-5.2); WHITE BLOOD COUNT 10.4 K/mm3 (4.0-10.8)
[2021-01-02] MEDS: ALBUTEROL SO4 2.5/IPRATROPIUM 0.5 INH SOL 3 ML VIAL.NEB. NEB SCH ×2 (08:51→12:49)
[2021-01-02] MEDS ORDERED: DEXTROSE 5%-WATER - 50 ML IVPB ONE (09:01)
[2021-01-02] MEDS ORDERED: cefTRIAXone SODIUM 1 GM VIAL ONE (09:01)
[2021-01-02] MEDS ORDERED: MAGNESIUM SULF 50% (8.12 MEQ/2 ML-1 GM VIAL) IVPB ONE (09:53)
[2021-01-02] MEDS: ATORVASTATIN CA 10 MG TABLET (FP) PO SCH (10:15)
[2021-01-02] MEDS ORDERED: MAGNESIUM SULFATE IN WATER 2 GM/50 ML IVPB IVPB ONE (10:15)
[2021-01-02] MEDS: ALLOPURINOL 100 MG TABLET (FP) PO SCH (10:15)
[2021-01-02] MEDS: LISINOPRIL 20 MG TABLET PO SCH (10:15)
[2021-01-02] MEDS: ASPIRIN 81 MG CHEWABLE TABLETS PO SCH (10:15)
[2021-01-02] MEDS: CEFTRIAXONE 1 GM in DEXTROSE 5%-WATER - 50 ML IVPB SCH (10:16)
[2021-01-02] MEDS: SERTRALINE HCL 50 MG TABLET (FP) PO SCH (10:16)
[2021-01-02] MEDS: HYDROCHLOROTHIAZIDE 25 MG TABLET (FP) PO SCH (10:16)
[2021-01-02] MEDS ORDERED: ALBUTEROL SO4 2.5/IPRATROPIUM 0.5 INH SOL 3 ML VIAL.NEB. NEB ONE (13:45)
[2021-01-02 13:51] VITALS: BP 184/46; PULSE 97; TEMP 98.9
== END 2021-01-02 14:30 | disposition left against medical advice (07) | DRG 189 ==
LOC: FER 17:40 → FM/S 23:56 → UNDOADMOB 23:56 → FM/S 01-01 00:32 → OBSVTOIN 01-01 16:36 → FM/S 01-01 16:36 → INTOOBSV 01-01 16:36
PROVIDERS: ADMIT Internal Medicine; ATTEND Nurse Practitioner Acute Care
DX: J96.01 Acute respiratory failure with hypoxia (principal); J44.1 Chronic obstructive pulmonary disease with (acute) exacerbation; N39.0 Urinary tract infection, site not specified; E78.5 Hyperlipidemia, unspecified; I25.10 Atherosclerotic heart disease of native coronary artery without angina pectoris; E03.9 Hypothyroidism, unspecified; I11.0 Hypertensive heart disease with heart failure; E11.9 Type 2 diabetes mellitus without complications; M10.9 Gout, unspecified; E83.42 Hypomagnesemia; F17.210 Nicotine dependence, cigarettes, uncomplicated; I50.9 Heart failure, unspecified; E87.6 Hypokalemia
CPT/HCPCS: 36415; 71045-TC-FY; 80048; 80053; 81003; 81015; 82550; 82803; 82962; 83735; 83880; 84443; 84484; 85025; 87040; 87086; 87186; 93005; 93306-TC; 94640; 97116-GP; 97161-GP; 99285-25; C9803; J1644; U0003; U0005

== ENCOUNTER 2021-03-20 16:09 | Inpatient (IN) | payer OTHER, MEDICARE ==
[2021-03-20 16:42] VITALS: BMI 31.3
[2021-03-20] MEDS ORDERED: methylPREDNISolone NA SUCC 125 MG/2 ML VIAL IVPUSH ONE (17:45)
[2021-03-20] MEDS ORDERED: methylPREDNISolone NA SUCC 125 MG/2 ML VIAL ONE ×2 (17:57→18:10)
[2021-03-20] MEDS ORDERED: ALBUTEROL SO4 2.5/IPRATROPIUM 0.5 INH SOL 3 ML VIAL.NEB. NEB ONE ×2 (17:57→18:10)
[2021-03-20] MEDS ORDERED: SODIUM CHLORIDE 500 ML IV STA ×2 (18:24→18:25)
[2021-03-20] MEDS ORDERED: SODIUM CHLORIDE 1,000 ML IV STA (18:24)
[2021-03-20] MEDS: ALBUTEROL SO4 2.5/IPRATROPIUM 0.5 INH SOL 3 ML VIAL.NEB. NEB SCH ×4 (18:30→18:39)
[2021-03-20 19:06] LABS: VENOUS BASE EXCESS 1.1 mmol/L (-2-2); VENOUS O2 SATURATION 66.5 % (70-80); VENOUS PH 7.245 (7.310-7.410)
[2021-03-20 19:08] LABS: VENOUS PCO2 72.7 mmHg (38-52)
[2021-03-20 19:12] LABS: BASO % 0.3 % (0-2.0); HEMATOCRIT 42.3 % (32.4-45.2); LYMPH % 12.6 % (8-40); MCH 28.4 pg (25.7-33.7); MEAN CELL VOLUME 86.1 fl (80-96); MEAN PLT VOLUME 7.6 fl (7.5-11.1); MONO % 6.2 % (3.8-10.2); NEUT % 80.9 % (42.8-82.8); PLATELET COUNT 300 10^3/uL (134-434); RBC 4.91 M/mm3 (3.60-5.2); RDW 16.1 % (11.6-15.6); WHITE BLOOD COUNT 13.2 K/mm3 (4.0-10.0)
[2021-03-20 19:35] LABS: CALCIUM 9.2 mg/dL (8.5-10.1)
[2021-03-20 19:36] LABS: ALBUMIN 2.5 g/dl (3.4-5.0); BLOOD UREA NITROGEN 39.7 mg/dL (7-18)
[2021-03-20 19:39] LABS: CREATININE 2.2 mg/dL (0.55-1.3)
[2021-03-20 19:40] LABS: BILIRUBIN,TOTAL 0.5 mg/dL (0.2-1)
[2021-03-20 19:41] LABS: TOT PROT 6.7 g/dl (6.4-8.2)
[2021-03-20] MEDS ORDERED: ASPIRIN 81 MG CHEWABLE TABLETS PO ONE (21:19)
[2021-03-20] MEDS ORDERED: ASPIRIN 81 MG CHEWABLE TABLETS ONE (22:13)
[2021-03-21] MEDS ORDERED: ALBUTEROL SO4 HFA INHALER IH PRN (01:32)
[2021-03-21] MEDS ORDERED: KCL 10 MEQ IVPB 10 MEQ/100 ML INFUS.BAG IVPB ONE (03:51)
[2021-03-21] MEDS ORDERED: ALBUTEROL SO4 2.5/IPRATROPIUM 0.5 INH SOL 3 ML VIAL.NEB. NEB ONE (03:54)
[2021-03-21] MEDS: KCL 10 MEQ IVPB 10 MEQ/100 ML INFUS.BAG IVPB SCH ×3 (04:07→14:08)
[2021-03-21] MEDS: ALBUTEROL SO4 2.5/IPRATROPIUM 0.5 INH SOL 3 ML VIAL.NEB. NEB SCH ×5 (04:07→20:53)
[2021-03-21] MEDS: HEPARIN NA (PORCINE) 5,000 UNITS/ML 1ML VIAL SQ SCH ×3 (06:21→22:03)
[2021-03-21 06:45] LABS: ARTERIAL BLD GAS O2 SATURATION 99.3 % (95-98); ARTERIAL BLOOD GAS BASE EXCESS 1.9 mmol/L (-2-2); ARTERIAL BLOOD GAS PO2 184.9 mmHg (80-100); ARTERIAL BLOOD GAS pH 7.431 (7.350-7.450)
[2021-03-21 06:58] LABS: ALLENS TEST POSITIVE
[2021-03-21 06:59] LABS: VENT MODE S/T; VENT RATE 14
[2021-03-21 08:14] LABS: BASO % 0.3 % (0-2.0); HEMATOCRIT 39.6 % (32.4-45.2); HEMOGLOBIN 12.7 GM/dL (10.7-15.3); LYMPH % 7.5 % (8-40); MCH 28.2 pg (25.7-33.7); MCHC 32.2 g/dl (32.0-36.0); MEAN CELL VOLUME 87.4 fl (80-96); MEAN PLT VOLUME 7.9 fl (7.5-11.1); MONO % 6.1 % (3.8-10.2); NEUT % 86.1 % (42.8-82.8); PLATELET COUNT 273 10^3/uL (134-434); RBC 4.53 M/mm3 (3.60-5.2); RDW 15.7 % (11.6-15.6); WHITE BLOOD COUNT 11.8 K/mm3 (4.0-10.0)
[2021-03-21 08:47] LABS: ALBUMIN 2.5 g/dl (3.4-5.0); CALCIUM 8.5 mg/dL (8.5-10.1)
[2021-03-21 08:48] LABS: MAGNESIUM 1.7 mg/dL (1.8-2.4)
[2021-03-21 08:50] LABS: PHOSPHOROUS 4.8 mg/dL (2.5-4.9)
[2021-03-21 08:51] LABS: CREATININE 2.4 mg/dL (0.55-1.3)
[2021-03-21 08:52] LABS: BILIRUBIN,TOTAL 0.3 mg/dL (0.2-1); TOT PROT 6.3 g/dl (6.4-8.2)
[2021-03-21] MEDS: INSULIN SLIDING SCALE (NOVOLOG) 1 VIAL SQ SCH ×4 (09:00→22:03)
[2021-03-21] MEDS ORDERED: ATORVASTATIN CA 20 MG TABLET (FP) ONE (09:56)
[2021-03-21] MEDS ORDERED: POTASSIUM CHLORIDE TABS 10 MEQ TABLET.ER (FP) ONE (09:57)
[2021-03-21] MEDS ORDERED: methylPREDNISolone NA SUCC 40 MG/1 ML VIAL ONE (09:57)
[2021-03-21] MEDS ORDERED: AZITHROMYCIN IVPB 500 MG/250 ML BAG IVPB ONE (09:57)
[2021-03-21] MEDS ORDERED: POTASSIUM CHLORIDE TABS 20 MEQ TABLET.ER (FP) PO ONE (09:57)
[2021-03-21] MEDS ORDERED: LISINOPRIL 20 MG TABLET PO SCH (10:00)
[2021-03-21] MEDS ORDERED: HYDROCHLOROTHIAZIDE 25 MG TABLET (FP) PO SCH (10:00)
[2021-03-21] MEDS ORDERED: methylPREDNISolone NA SUCC 40 MG/1 ML VIAL IVPUSH SCH (10:00)
[2021-03-21] MEDS ORDERED: MAGNESIUM OXIDE 400 MG TABLET (FP) PO ONE (10:24)
[2021-03-21] MEDS ORDERED: CEFTRIAXONE 1 GM in DEXTROSE 5%-WATER - 50 ML IVPB ONE (10:27)
[2021-03-21] MEDS: methylPREDNISolone NA SUCC 40 MG/1 ML VIAL IVPUSH SCH (10:30)
[2021-03-21] MEDS: POTASSIUM CHLORIDE TABS 10 MEQ TABLET.ER (FP) PO SCH (10:30)
[2021-03-21] MEDS: ATORVASTATIN CA 10 MG TABLET (FP) PO SCH (10:30)
[2021-03-21] MEDS: AZITHROMYCIN IVPB 500 MG/250 ML BAG IVPB SCH (10:30)
[2021-03-21] MEDS ORDERED: SERTRALINE HCL 50 MG TABLET (FP) ONE (10:32)
[2021-03-21] MEDS ORDERED: CEFTRIAXONE 1 GM/50 ML BAG ONE (10:34)
[2021-03-21] MEDS: SERTRALINE HCL 50 MG TABLET (FP) PO SCH (10:44)
[2021-03-21] MEDS: BUDESONIDE/FORMETEROL FUMARATE 160/4.5 mcg INHALER IH SCH ×2 (11:05→22:44)
[2021-03-21] MEDS ORDERED: HEPARIN NA (PORCINE) 5,000 UNITS/ML 1ML VIAL ONE (12:49)
[2021-03-21] MEDS ORDERED: CEFTRIAXONE 1,000 MG in DEXTROSE 5%-WATER - 50 ML IVPB ONE (13:37)
[2021-03-21 17:09] LABS: EPI CELLS >36 /uL (0-25.1); HYALINE CASTS 4 /uL (0-3.1); URINE APPEARANCE CLOUDY; URINE BACTERIA 30 /uL (0-1359); URINE BILIRUBIN NEGATIVE (NEGATIVE); URINE COLOR YELLOW; URINE GLUCOSE (UA) 1+ (NEGATIVE); URINE KETONE NEGATIVE (NEGATIVE); URINE LEUK ESTERASE 1+ (NEGATIVE); URINE NITRITE NEGATIVE (NEGATIVE); URINE PROTEIN 4+ (NEGATIVE); URINE RBC 17 /uL (0-23.9); URINE UROBILINOGEN 0.2 mg/dL (0.2-1.0); URINE WBC 262 /uL (0-25.8)
[2021-03-21] MEDS ORDERED: PT OWN MED DRAWER 7, Y5N ONE (22:01)
[2021-03-22] MEDS: ALBUTEROL SO4 2.5/IPRATROPIUM 0.5 INH SOL 3 ML VIAL.NEB. NEB SCH ×7 (04:05→23:50)
[2021-03-22] MEDS: HEPARIN NA (PORCINE) 5,000 UNITS/ML 1ML VIAL SQ SCH ×3 (06:32→22:35)
[2021-03-22] MEDS: INSULIN SLIDING SCALE (NOVOLOG) 1 VIAL SQ SCH ×4 (06:32→22:34)
[2021-03-22 07:12] LABS: HEMATOCRIT 39.9 % (32.4-45.2); HEMOGLOBIN 12.9 GM/dL (10.7-15.3); MCH 28.3 pg (25.7-33.7); MCHC 32.4 g/dl (32.0-36.0); MEAN CELL VOLUME 87.4 fl (80-96); MEAN PLT VOLUME 7.9 fl (7.5-11.1); PLATELET COUNT 283 10^3/uL (134-434); RBC 4.56 M/mm3 (3.60-5.2); RDW 15.4 % (11.6-15.6); WHITE BLOOD COUNT 11.6 K/mm3 (4.0-10.0)
[2021-03-22] MEDS ORDERED: FLU VACC QS2021-22(6MOS UP)/PF 60 MCG/0.5 ML SYRINGE IM ONE (07:21)
[2021-03-22] MEDS ORDERED: PNEUMOC 13-VAL CONJ-DIP CRM/PF 0.5 ML DISP.SYRIN IM ONE (07:21)
[2021-03-22 07:45] LABS: CALCIUM 8.6 mg/dL (8.5-10.1)
[2021-03-22 07:46] LABS: ALBUMIN 2.4 g/dl (3.4-5.0); BLOOD UREA NITROGEN 49.8 mg/dL (7-18)
[2021-03-22 07:49] LABS: CREATININE 1.8 mg/dL (0.55-1.3)
[2021-03-22 07:50] LABS: BILIRUBIN,TOTAL 0.7 mg/dL (0.2-1)
[2021-03-22 07:51] LABS: TOT PROT 5.9 g/dl (6.4-8.2)
[2021-03-22] MEDS ORDERED: DEXTROSE 5%-WATER - 50 ML IVPB ONE (08:18)
[2021-03-22] MEDS ORDERED: cefTRIAXone SODIUM 1 GM VIAL ONE (08:18)
[2021-03-22] MEDS: AZITHROMYCIN IVPB 500 MG/250 ML BAG IVPB SCH (09:03)
[2021-03-22] MEDS ORDERED: CEFTRIAXONE 1 GM in DEXTROSE 5%-WATER - 50 ML IVPB ONE (10:00)
[2021-03-22] MEDS: ATORVASTATIN CA 10 MG TABLET (FP) PO SCH (10:37)
[2021-03-22] MEDS: POTASSIUM CHLORIDE TABS 10 MEQ TABLET.ER (FP) PO SCH (10:37)
[2021-03-22] MEDS: SERTRALINE HCL 50 MG TABLET (FP) PO SCH (10:37)
[2021-03-22] MEDS: BUDESONIDE/FORMETEROL FUMARATE 160/4.5 mcg INHALER IH SCH ×2 (10:39→22:36)
[2021-03-22] MEDS: methylPREDNISolone NA SUCC 40 MG/1 ML VIAL IVPUSH SCH (10:39)
[2021-03-22] MEDS: SODIUM CHLORIDE 1,000 ML IV SCH (15:50)
[2021-03-22] MEDS ORDERED: CEFTRIAXONE 1 GM in DEXTROSE 5%-WATER - 50 ML IVPB SCH (16:45)
[2021-03-23] MEDS: ALBUTEROL SO4 2.5/IPRATROPIUM 0.5 INH SOL 3 ML VIAL.NEB. NEB SCH ×5 (04:04→21:00)
[2021-03-23] MEDS: INSULIN SLIDING SCALE (NOVOLOG) 1 VIAL SQ SCH ×3 (06:37→21:05)
[2021-03-23] MEDS: HEPARIN NA (PORCINE) 5,000 UNITS/ML 1ML VIAL SQ SCH ×3 (06:44→21:07)
[2021-03-23 07:32] LABS: BASO % 0.3 % (0-2.0); EOS % 0.2 % (0-4.5); HEMATOCRIT 43.7 % (32.4-45.2); HEMOGLOBIN 14.6 GM/dL (10.7-15.3); LYMPH % 17.8 % (8-40); MCH 29.2 pg (25.7-33.7); MCHC 33.3 g/dl (32.0-36.0); MEAN CELL VOLUME 87.6 fl (80-96); MEAN PLT VOLUME 7.7 fl (7.5-11.1); MONO % 9.2 % (3.8-10.2); NEUT % 72.5 % (42.8-82.8); PLATELET COUNT 307 10^3/uL (134-434); RBC 4.99 M/mm3 (3.60-5.2); RDW 15.5 % (11.6-15.6); WHITE BLOOD COUNT 12.6 K/mm3 (4.0-10.0)
[2021-03-23 08:12] LABS: VENOUS BASE EXCESS 3.4 mmol/L (-2-2); VENOUS O2 SATURATION 99.4 % (70-80); VENOUS PCO2 61.5 mmHg (38-52); VENOUS PH 7.325 (7.310-7.410)
[2021-03-23 08:22] LABS: CALCIUM 9.3 mg/dL (8.5-10.1)
[2021-03-23 08:23] LABS: BLOOD UREA NITROGEN 49.2 mg/dL (7-18)
[2021-03-23 08:26] LABS: CREATININE 1.8 mg/dL (0.55-1.3)
[2021-03-23] MEDS ORDERED: cefTRIAXone SODIUM 1 GM VIAL ONE (10:05)
[2021-03-23] MEDS ORDERED: DEXTROSE 5%-WATER - 50 ML IVPB ONE (10:08)
[2021-03-23] MEDS: CEFTRIAXONE 1 GM in DEXTROSE 5%-WATER - 50 ML IVPB SCH (13:23)
[2021-03-23] MEDS: ATORVASTATIN CA 10 MG TABLET (FP) PO SCH (13:23)
[2021-03-23] MEDS: POTASSIUM CHLORIDE TABS 10 MEQ TABLET.ER (FP) PO SCH (13:23)
[2021-03-23] MEDS: AZITHROMYCIN IVPB 500 MG/250 ML BAG IVPB SCH (13:23)
[2021-03-23] MEDS: SERTRALINE HCL 50 MG TABLET (FP) PO SCH (13:23)
[2021-03-23] MEDS: methylPREDNISolone NA SUCC 40 MG/1 ML VIAL IVPUSH SCH (13:23)
[2021-03-23] MEDS: BUDESONIDE/FORMETEROL FUMARATE 160/4.5 mcg INHALER IH SCH ×2 (13:23→21:17)
[2021-03-23] MEDS: SODIUM CHLORIDE 1,000 ML IV SCH (14:02)
[2021-03-24] MEDS: ALBUTEROL SO4 2.5/IPRATROPIUM 0.5 INH SOL 3 ML VIAL.NEB. NEB SCH ×6 (00:15→20:10)
[2021-03-24] MEDS ORDERED: amLODIPine BESYLATE 5 MG TABLET (FP) PO ONE (02:18)
[2021-03-24] MEDS: HEPARIN NA (PORCINE) 5,000 UNITS/ML 1ML VIAL SQ SCH ×3 (05:26→21:09)
[2021-03-24 07:48] LABS: HEMATOCRIT 38.8 % (32.4-45.2); HEMOGLOBIN 12.6 GM/dL (10.7-15.3); MCH 28.4 pg (25.7-33.7); MCHC 32.5 g/dl (32.0-36.0); MEAN CELL VOLUME 87.3 fl (80-96); PLATELET COUNT 264 10^3/uL (134-434); RBC 4.44 M/mm3 (3.60-5.2); RDW 15.2 % (11.6-15.6); WHITE BLOOD COUNT 8.2 K/mm3 (4.0-10.0)
[2021-03-24] MEDS ORDERED: cefTRIAXone SODIUM 1 GM VIAL ONE (08:40)
[2021-03-24] MEDS ORDERED: DEXTROSE 5%-WATER - 50 ML IVPB ONE (08:40)
[2021-03-24 08:51] LABS: BLOOD UREA NITROGEN 44.4 mg/dL (7-18); CALCIUM 8.5 mg/dL (8.5-10.1); CREATININE 1.4 mg/dL (0.55-1.3)
[2021-03-24] MEDS: CEFTRIAXONE 1 GM in DEXTROSE 5%-WATER - 50 ML IVPB SCH (09:14)
[2021-03-24] MEDS: POTASSIUM CHLORIDE TABS 10 MEQ TABLET.ER (FP) PO SCH (09:15)
[2021-03-24] MEDS: SERTRALINE HCL 50 MG TABLET (FP) PO SCH (09:15)
[2021-03-24] MEDS: ATORVASTATIN CA 10 MG TABLET (FP) PO SCH (09:15)
[2021-03-24] MEDS: AZITHROMYCIN IVPB 500 MG/250 ML BAG IVPB SCH (09:16)
[2021-03-24] MEDS: INSULIN SLIDING SCALE (NOVOLOG) 1 VIAL SQ SCH ×4 (09:21→21:10)
[2021-03-24] MEDS: BUDESONIDE/FORMETEROL FUMARATE 160/4.5 mcg INHALER IH SCH ×2 (09:35→21:09)
[2021-03-24] MEDS: methylPREDNISolone NA SUCC 40 MG/1 ML VIAL IVPUSH SCH (10:23)
[2021-03-24] MEDS: SODIUM CHLORIDE 1,000 ML IV SCH (13:56)
[2021-03-24] MEDS: ALLOPURINOL 100 MG TABLET (FP) PO SCH (21:09)
[2021-03-25] MEDS: SODIUM CHLORIDE 1,000 ML IV SCH (03:30)
[2021-03-25] MEDS ORDERED: hydrALAZINE HCL 10 MG TABLET PO ONE ×2 (03:52→11:00)
[2021-03-25] MEDS: ALBUTEROL SO4 2.5/IPRATROPIUM 0.5 INH SOL 3 ML VIAL.NEB. NEB SCH ×6 (04:00→22:27)
[2021-03-25] MEDS ORDERED: amLODIPine BESYLATE 5 MG TABLET (FP) PO ONE (05:54)
[2021-03-25] MEDS: HEPARIN NA (PORCINE) 5,000 UNITS/ML 1ML VIAL SQ SCH ×3 (06:00→21:47)
[2021-03-25 07:31] LABS: HEMOGLOBIN 12.9 GM/dL (10.7-15.3); MCHC 33.1 g/dl (32.0-36.0); MEAN CELL VOLUME 87.8 fl (80-96); MEAN PLT VOLUME 7.8 fl (7.5-11.1); PLATELET COUNT 242 10^3/uL (134-434); RBC 4.44 M/mm3 (3.60-5.2); RDW 15.3 % (11.6-15.6); WHITE BLOOD COUNT 8.1 K/mm3 (4.0-10.0)
[2021-03-25 08:02] LABS: ALBUMIN 2.1 g/dl (3.4-5.0); BLOOD UREA NITROGEN 36.4 mg/dL (7-18); CREATININE 1.3 mg/dL (0.55-1.3)
[2021-03-25 08:04] LABS: BILIRUBIN,TOTAL 0.2 mg/dL (0.2-1); CALCIUM 8.6 mg/dL (8.5-10.1); TOT PROT 5.5 g/dl (6.4-8.2)
[2021-03-25 08:05] LABS: MAGNESIUM 1.7 mg/dL (1.8-2.4)
[2021-03-25] MEDS ORDERED: DEXTROSE 5%-WATER - 50 ML IVPB ONE (08:56)
[2021-03-25] MEDS ORDERED: cefTRIAXone SODIUM 1 GM VIAL ONE (08:56)
[2021-03-25] MEDS: POTASSIUM CHLORIDE TABS 10 MEQ TABLET.ER (FP) PO SCH (09:05)
[2021-03-25] MEDS: ATORVASTATIN CA 10 MG TABLET (FP) PO SCH (09:06)
[2021-03-25] MEDS: ALLOPURINOL 100 MG TABLET (FP) PO SCH ×2 (09:06→21:48)
[2021-03-25] MEDS: MULTIVITAMINS (DAILY MVI) TABLET (FP) PO SCH (09:06)
[2021-03-25] MEDS: methylPREDNISolone NA SUCC 40 MG/1 ML VIAL IVPUSH SCH (09:06)
[2021-03-25] MEDS: ZINC SULFATE 220 MG CAPSULE (FP) PO SCH (09:06)
[2021-03-25] MEDS: CEFTRIAXONE 1 GM in DEXTROSE 5%-WATER - 50 ML IVPB SCH (09:06)
[2021-03-25] MEDS: SERTRALINE HCL 50 MG TABLET (FP) PO SCH (09:06)
[2021-03-25] MEDS: ASCORBIC ACID 250 MG TABLET (FP) PO SCH (09:06)
[2021-03-25] MEDS: INSULIN SLIDING SCALE (NOVOLOG) 1 VIAL SQ SCH ×5 (09:26→22:04)
[2021-03-25] MEDS: BUDESONIDE/FORMETEROL FUMARATE 160/4.5 mcg INHALER IH SCH ×2 (09:29→21:48)
[2021-03-25] MEDS: AZITHROMYCIN IVPB 500 MG/250 ML BAG IVPB SCH (09:29)
[2021-03-25] MEDS: amLODIPine BESYLATE 10 MG TABLET (FP) PO SCH (10:51)
[2021-03-25] MEDS ORDERED: MAGNESIUM OXIDE 400 MG TABLET (FP) PO ONE (11:00)
[2021-03-25] MEDS ORDERED: MAGNESIUM 2GM/50ML STERILE WATER IVPB IVPB ONE (13:45)
[2021-03-25] MEDS: LISINOPRIL 20 MG TABLET PO SCH (15:20)
[2021-03-26] MEDS: ALBUTEROL SO4 2.5/IPRATROPIUM 0.5 INH SOL 3 ML VIAL.NEB. NEB SCH ×4 (00:31→11:15)
[2021-03-26] MEDS: HEPARIN NA (PORCINE) 5,000 UNITS/ML 1ML VIAL SQ SCH (06:10)
[2021-03-26] MEDS: INSULIN SLIDING SCALE (NOVOLOG) 1 VIAL SQ SCH ×2 (06:10→11:29)
[2021-03-26] MEDS ORDERED: DEXTROSE 5%-WATER - 50 ML IVPB ONE (08:06)
[2021-03-26] MEDS ORDERED: cefTRIAXone SODIUM 1 GM VIAL ONE (08:06)
[2021-03-26 08:11] VITALS: BP 144/65; PULSE 92; TEMP 98.8
[2021-03-26] MEDS: ALLOPURINOL 100 MG TABLET (FP) PO SCH (09:28)
[2021-03-26] MEDS: ASCORBIC ACID 250 MG TABLET (FP) PO SCH (09:29)
[2021-03-26] MEDS: POTASSIUM CHLORIDE TABS 10 MEQ TABLET.ER (FP) PO SCH (09:29)
[2021-03-26] MEDS: amLODIPine BESYLATE 10 MG TABLET (FP) PO SCH (09:29)
[2021-03-26] MEDS: MULTIVITAMINS (DAILY MVI) TABLET (FP) PO SCH (09:29)
[2021-03-26] MEDS: LISINOPRIL 20 MG TABLET PO SCH (09:29)
[2021-03-26] MEDS: SERTRALINE HCL 50 MG TABLET (FP) PO SCH (09:29)
[2021-03-26] MEDS: ZINC SULFATE 220 MG CAPSULE (FP) PO SCH (09:29)
[2021-03-26] MEDS: BUDESONIDE/FORMETEROL FUMARATE 160/4.5 mcg INHALER IH SCH (09:30)
[2021-03-26] MEDS: ATORVASTATIN CA 10 MG TABLET (FP) PO SCH (09:30)
[2021-03-26] MEDS: AZITHROMYCIN IVPB 500 MG/250 ML BAG IVPB SCH (09:30)
[2021-03-26] MEDS: methylPREDNISolone NA SUCC 40 MG/1 ML VIAL IVPUSH SCH (09:34)
== END 2021-03-26 11:47 | disposition home or self-care (01) | DRG 871 ==
LOC: JER 16:09 → JERBED 19:27 → J4W 03-21 18:31
PROVIDERS: ADMIT Hospitalist; ATTEND Internal Medicine
DX: A41.9 Sepsis, unspecified organism (principal); J96.22 Acute and chronic respiratory failure with hypercapnia; G93.41 Metabolic encephalopathy; J18.9 Pneumonia, unspecified organism; G92.8 Other toxic encephalopathy; J44.1 Chronic obstructive pulmonary disease with (acute) exacerbation; N17.9 Acute kidney failure, unspecified; N39.0 Urinary tract infection, site not specified; E87.2 Acidosis; I24.8 Other forms of acute ischemic heart disease; N18.9 Chronic kidney disease, unspecified; E11.65 Type 2 diabetes mellitus with hyperglycemia; E87.6 Hypokalemia; E78.5 Hyperlipidemia, unspecified; I25.10 Atherosclerotic heart disease of native coronary artery without angina pectoris; F17.210 Nicotine dependence, cigarettes, uncomplicated; I12.9 Hypertensive chronic kidney disease with stage 1 through stage 4 chronic kidney disease, or unspecified chronic kidney disease; E03.9 Hypothyroidism, unspecified
CPT/HCPCS: 36415; 36600; 70450-TC; 71045-TC-FY; 72125-TC; 74176-TC; 80048; 80053; 80061; 81003; 82550; 82553; 82803; 82962; 83735; 84100; 84132; 84443; 84484; 85025; 85027; 87086; 87804; 93005; 93010; 94640; 94660; 94761; 97116-GP; 97162-GP; 99285-25; C9803-CS; J1644; U0003; U0005